=== PATIENT | female | born 1955 | race Caucasian/White ===

== ENCOUNTER → 2020-01-18 10:03 | Outpatient (CLI) | payer BC, SELFPAY ==
--- NOTE | ~2020-01-18 | MM_ITS ---
EXAMINATION: MM screening gabi BI w silvia HISTORY: Screening TECHNIQUE: Craniocaudal and mediolateral oblique 3-D tomosynthesis images were obtained and synthetic 2-D images were generated. CAD analysis was submitted and interpreted. COMPARISON: Comparison to multiple prior studies sequentially, with oldest reviewed study dated 10/04. BREAST PARENCHYMAL COMPOSITION: There are scattered areas of fibroglandular density. FINDINGS: There is a developing mass partially obscured by dense fibroglandular tissue in the upper o uter quadrant of the left breast. The right breast is stable without evidence for malignancy. IMPRESSION: 1. Developing 5 mm mass upper outer quadrant of the left breast. 2. Additional mammographic views and possible breast ultrasound are recommended. BI-RADS Category 0: Incomplete: Needs additional imaging evaluation. Reviewed, dictated and finalized at location A. P ACCOUNT DIRECTOR IMPRESSION: 1. Developing 5 mm mass upper outer quadrant of the left breast. 2. Additional mammographic views and possible breast ultrasound are recommended . BI-RADS Category 0: Incomplete: Needs additional imaging evaluation.
== END ==
PROVIDERS: PCP Physician Assistant; Visit Provider Nurse Practitioner
DX: Z12.31 Encounter for screening mammogram for malignant neoplasm of breast (principal); R92.8 Other abnormal and inconclusive findings on diagnostic imaging of breast
CPT/HCPCS: 77063; 77067

== ENCOUNTER → 2020-02-09 07:47 | Outpatient (CLI) | payer BC, SELFPAY ==
--- NOTE | ~2020-02-09 | MMUS_ITS ---
EXAMINATION: MM diagnostic mammo unilat LT, US breast LT limited HISTORY: Follow-up developing left breast mass TECHNIQUE: Additional 3-D tomosynthesis images of the left breast were performed and synthetic 2-D im ages were generated. CAD analysis was submitted and interpreted. High resolution Limited left breast ultrasound was performed. COMPARISON: Comparison to multiple prior studies sequentially, with oldest reviewed study dated 10/06. BREAST PARENCHYMAL COMPOSITION: Breast composed of scattered areas of fibroglandular density. FINDINGS: MAMMOGRAPHIC FINDINGS: There is a small 4 mm mass in the upper outer quadrant of the left breast anteriorly with central richelle ency and circumscribed margins, likely benign. No suspicious calcifications or architectural distorti on. ULTRASOUND: Limited left breast ultrasound: There are mildly prominent ducts in the lateral aspect of the left br east at 2-3:00. No discrete mass identified. IMPRESSION: 1. Probable benign left breast mass in the upper outer quadrant anteriorly measuring 4 mm. No definit e sonographic correlate. 2. Recommend 6 month follow-up diagnostic left mammogram BI-RADS category 3, probably benign findings. Reviewed, dictated and finalized at location A. R MACHINE OPERATOR HELPER IMPRESSION: 1. Probable benign left breast mass in the upper outer quadrant anteriorly margie uring 4 mm. No definite sonographic correlate. 2. Recommend 6 month follow-up diagnostic left mammogram BI-RADS category 3, probably benign findings.
== END ==
PROVIDERS: PCP Physician Assistant; Visit Provider Obstetrics & Gynecology Gynecology
DX: R92.8 Other abnormal and inconclusive findings on diagnostic imaging of breast (principal)
CPT/HCPCS: 76642; 77065

== ENCOUNTER → 2020-10-06 09:41 | Outpatient (CLI) | payer BC, SELFPAY ==
--- NOTE | ~2020-10-06 | DEXA_ITS ---
Bone Density Report Name: Raven Figueroa Age: 65 Sex: Female Ethnicity: White Date of : 1955 Indication: postmenopausal; screening for osteoporosis; Referring Provider: JOSE JUAN, COLBY Study: Bone densitometry was performed. Exam Date: October 06, 2020 Accession number: [id number] Bone Density: Region BMD T-score Z-score Classification AP Spine (L1-L4) 1.078 0.3 1.9 Normal Femoral Neck (Left) 0.911 0.6 2.0 Normal Total Hip (Left) 1.086 1.2 2.3 Normal Femoral Neck (Right) 0.863 0.1 1.6 Normal Total Hip (Right) 1.023 0.7 1.8 Normal Total Hip Mean 1.055 1.0 2.1 Normal World Health Organization criteria for BMD impression classify patients as: Normal (T-score at or above -1.0), Osteopenia (T-score between -1.0 and -2.5), or Osteoporosis (T-score at or below -2.5). 10-year Fracture Risk: FRAX not reported because: All T-scores for Spine Total, Hip Total, Femoral Neck at or above -1.0 Previous Exams: Region Exam Age BMD T-score BMD Change BMD Change Date g/cm2 vs Baseline vs Previous AP Spine(L1-L4) 10/06/2020 65 1.078 0.3 -0.064* -0.094* 09/09/2012 57 1.172 1.1 0.031* -0.006 08/14/2009 54 1.179 1.2 0.037* 0.037* 07/31/2007 52 1.142 0.9 Total Hip(Left) 10/06/2020 65 1.086 1.2 -0.051* -0.104* 09/09/2012 57 1.190 2.0 0.053* -0.007 08/14/2009 54 1.197 2.1 0.059* 0.059* 07/31/2007 52 1.137 1.6 Total Hip(Right) 10/06/2020 65 1.023 0.7 -0.031* -0.054* 09/09/2012 57 1.078 1.1 0.023 0.014 08/14/2009 54 1.064 1.0 0.009 0.009 07/31/2007 52 1.054 0.9 *Denotes significance at 95% confidence level, LSC for AP Spine = 0.022 g/cm2, LSC for Total Hip = 0.027 g/cm2 Clinical Information Provided by Patient: Patient maximum height was 65 Menopause Age: 49 Drinks caffeinated beverages Onset of menses at age 13 Number of children 1 Impression: The patient has normal bone mass. The BMD for the AP Spine(L1-L4) decreased, changing by -0.094 since the last DXA exam. The BMD for the Total Hip(Left) decreased, changing by -0.104 since the last DXA exam. The BMD for the Total Hip(Right) decreased, changing by -0.054 since the last DXA exam. Discussion: BONE DENSITY IS ABOVE THE MINIMUM DESIRABLE LEVEL AT ALL SKELETAL SITES
== END ==
PROVIDERS: PCP Physician Assistant; Visit Provider Nurse Practitioner
DX: Z78.0 Asymptomatic menopausal state (principal)
CPT/HCPCS: 77080

== ENCOUNTER → 2023-02-18 16:09 | Outpatient (CLI) | payer BC, SELFPAY ==
--- NOTE | ~2023-02-18 | XR_ITS ---
EXAMINATION: XR chest 2V Exam Date/Time: 02/18/2023 16:24 POWER NUT RUNNER OPERATOR HISTORY: COUGH Comparison: None. RESULT: Lines, tubes, and devices: None. Lungs and pleura: Minimal apical pleural scarring. Mild diffuse reticulonodular opacities. Cardiomediastinal silhouette: Unremarkable. Other: No acute osseous or upper abdominal finding. IMPRESSION: Pulmonary opacities may represent bronchiolitis, as can be seen with atypical infection, asthma, aspi ration, and small airways disease. Reviewed, dictated and finalized at location K. R NUT RUNNER OPERATOR IMPRESSION: Pulmonary opacities may represent bronchiolitis, as can be seen with atypical i nfection, asthma, aspiration, and small airways disease.
== END ==
PROVIDERS: PCP Physician Assistant; Visit Provider Physician Assistant
DX: R05.9 Cough, unspecified (principal); R91.8 Other nonspecific abnormal finding of lung field
CPT/HCPCS: 71046

== ENCOUNTER 2023-06-11 15:44 | Outpatient (CLI) | payer BC, SELFPAY ==
--- NOTE | ~2023-06-11 | CT_ITS ---
EXAMINATION: CT diagnostic chest wo con DATE: 06/11/2023 16:06 INDICATION: Chronic cough TECHNIQUE: Computed tomography (CT) of the chest was performed without intravenous contrast. Automate d exposure control and iterative reconstruction technique were employed. Exam dose: 285.88 mGy-cm to arianne exam DLP. COMPARISON: 02/18/2023 2 view chest FINDINGS: No pulmonary infiltrate or consolidation or pulmonary mass lesion. No hilar or mediastinal mass lesion or lymphadenopathy. No thoracic aortic aneurysm. Normal heart s ize. No pericardial or pleural effusion. There is soft tissue swelling of the distal esophagus, which may be due to esophagitis or neoplasm. There is a small sliding hiatal hernia. Normal morphology of the adrenal glands. IMPRESSION: No significant abnormality Reviewed, dictated and finalized at Location A. Reviewed, dictated and finalized at location A. IMPRESSION: No significant abnormality
== END 2023-06-11 15:45 ==
LOC: MICIMG 15:46
PROVIDERS: PCP Physician Assistant; Visit Provider Physician Assistant
DX: R05.3 Chronic cough (principal)
CPT/HCPCS: 71250

== ENCOUNTER 2023-08-07 00:36 | Day surgery (SDC) | payer BC, SELFPAY ==
[2023-07-21 14:57] VITALS: BMI 29.7
[2023-08-07 12:52] VITALS: BP 129/76; PULSE 72; RESP 16; TEMP 36.6; O2SAT 98; BMI 29.9
[2023-08-07] MEDS: LACTATED RINGERS 1,000 ML 150 ML IV CONT (13:04)
[2023-08-07 13:06] LABS: Glucose Point of Care 85 mg/dl (65-105)
--- NOTE | 2023-08-07 13:28 | WPDANESEPPF ---
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 Patient Data Age: 68 Gender: F Height: 1.65 m Weight: 81.5 kg Last Vital Signs Temp 97.8 F 08/07/23 12:52 Pulse 72 08/07/23 12:52 Resp 16 08/07/23 12:52 BP 129/76 08/07/23 12:52 Pulse Ox 98 08/07/23 12:52 O2 Del Method Room Air 08/07/23 12:52 Allergies Allergy/AdvReac Type Severity Reaction Status Date / Time hydromorphone AdvReac Mild NAUSEA/VOMI Verified 08/07/23 12:51 TING codeine AdvReac Nausea and Verified 08/07/23 12:51 Vomiting Home Medications Medication Instructions Recorded Confirmed Type bupropion HCl 300 mg 24 hr tablet, 300 mg PO DAILY 07/21/23 08/07/23 History extended release cyanocobalamin (vitamin B-12) See Rx Instructions .Route .COMPLEX 07/21/23 08/07/23 History 1,000 mcg/mL injection solution levothyroxine 88 mcg tablet 88 mcg PO DAILY 07/21/23 08/07/23 History linaclotide 145 mcg capsule 145 mcg PO DAILY 07/21/23 08/07/23 History (Linzess) lorazepam 1 mg tablet 1 mg PO HS 07/21/23 08/07/23 History metformin 500 mg tablet,extended 500 mg PO DAILY 07/21/23 08/07/23 History release 24 hr pantoprazole 40 mg tablet,delayed 40 mg PO BID 07/21/23 08/07/23 History release rosuvastatin 5 mg tablet 5 mg PO DAILY 07/21/23 08/07/23 History Laboratory Tests 08/07/23 13:03 POC Capillary Glucose 85 mg/dl (65-105) Patient hx anesthesia problems: none Family hx anesthesia problems: none Results Review: All pre-operative results and documents have been reviewed as part of the pre-operative evaluation. [facility] Family History Family History Other Diabetes mellitus Family history of malignant neoplasm of breast Social History Social History Smoking status: Never smoker Alcohol intake: never Substance use: never Substance use type: does not use Living arrangements: with family Spiritual care concerns: No Anes - Eval Final PreProcedure Day of Procedure 08/07/23 13:28 Patient weight: overweight Heart: regular rate and rhythm Lungs: clear to auscultation Airway: Mallampati scale class III Neurological: alert and oriented Last oral intake: >/= 8 hours ASA classification: II Emergent: no Anesthetic plan: proceed Anesthesia type and monitoring: general GIVS and standard monitoring Results Review: All pre-operative results and documents have been reviewed as part of the pre-operative evaluation. Hx of esosphageal ulceration, abn MRI per pt, now for EGD. Pt has hyperlipidemia, prev sleep study neg per pt. Informed Consent: The patient's anesthetic plan and its attendant risks and benefits were discussed with the patient/family/POA. Questions were solicited and answers provided to the satisfaction of the patient/family/POA.
--- NOTE | 2023-08-07 14:04 | PM.HPGS ---
History of Present Illness History of Present Illness Consent: Risks, benefits, and alternatives have been discussed and questions answered. Patient agrees to proceed with procedure. 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 Last EGD 3 years ago. Review of Systems Review of Systems: All systems reviewed & are unremarkable except as noted in HPI and below PMFSH Past Medical History Medical History (Updated 08/07/23 @ 14:06 by Pino Zhou MD) GERD (gastroesophageal reflux disease) Family History Family History Other Diabetes mellitus Family history of malignant neoplasm of breast Social History Social History Smoking status: Never smoker Alcohol intake: never Substance use: never Substance use type: does not use Living arrangements: with family Spiritual care concerns: No Meds Home Medications and Allergies Home Medications Medication Instructions Recorded Confirmed Type bupropion HCl 300 mg 24 hr tablet, 300 mg PO DAILY 07/21/23 08/07/23 History extended release cyanocobalamin (vitamin B-12) See Rx Instructions .Route .COMPLEX 07/21/23 08/07/23 History 1,000 mcg/mL injection solution levothyroxine 88 mcg tablet 88 mcg PO DAILY 07/21/23 08/07/23 History linaclotide 145 mcg capsule 145 mcg PO DAILY 07/21/23 08/07/23 History (Linzess) lorazepam 1 mg tablet 1 mg PO HS 07/21/23 08/07/23 History metformin 500 mg tablet,extended 500 mg PO DAILY 07/21/23 08/07/23 History release 24 hr pantoprazole 40 mg tablet,delayed 40 mg PO BID 07/21/23 08/07/23 History release rosuvastatin 5 mg tablet 5 mg PO DAILY 07/21/23 08/07/23 History Allergies Allergy/AdvReac Type Severity Reaction Status Date / Time hydromorphone AdvReac Mild NAUSEA/VOMI Verified 08/07/23 12:51 TING codeine AdvReac Nausea and Verified 08/07/23 12:51 Vomiting Vital Signs Vital Signs - 24 hr 08/07/23 12:52 Temperature 97.8 F Pulse Rate 72 Respiratory Rate 16 Blood Pressure 129/76 Pulse Oximetry 98 Oxygen Delivery Room Air Exam Const: General: comfortable and no acute distress HENMT: Face/Nose/Sinus: Normal nares present Eyes: General: appearance normal, both eyes and all related structures Neck: Neck: no JVD Resp: Auscultation: clear to auscultation bilaterally Cardio: Rate: regular rate Rhythm: regular rhythm GI: Inspection: non-distended GI Palp: Yes Soft to palpation Skin: General skin exam: normal color Neuro: General: gait normal Speech: normal speech Extrem: General: normal to inspection Psych: Mental Status: mental status grossly normal Assessment and Plan Assessment and plan (1) GERD (gastroesophageal reflux disease): Code(s): K21.9 - Gastro-esophageal reflux disease without esophagitis Status: Acute Assessment and Plan: egd with bx already on ppi bid
[2023-08-07 14:25] VITALS: BP 106/68; PULSE 77; RESP 20; O2SAT 95
[2023-08-07 14:35] VITALS: BP 119/76; PULSE 72; RESP 22; O2SAT 97
[2023-08-07 14:45] VITALS: BP 136/81; PULSE 65; RESP 18; O2SAT 100
== END 2023-08-07 14:55 | disposition home or self-care (01) ==
PROVIDERS: PCP Physician Assistant; Visit Provider Internal Medicine Gastroenterology
PROC: 0DJ08ZZ Inspection of Upper Intestinal Tract, Via Natural or Artificial Opening Endoscopic (ICD-10-PCS; CPT 43235; principal; 2023-08-07 14:00)
DX: K21.00 Gastro-esophageal reflux disease with esophagitis, without bleeding (principal); K22.70 Barrett's esophagus without dysplasia; K44.9 Diaphragmatic hernia without obstruction or gangrene; Z83.3 Family history of diabetes mellitus
CPT/HCPCS: 43239; 82948; 88305; J2001; J2704; J7120

== ENCOUNTER 2024-06-23 12:32 | Outpatient (CLI) | payer BC, SELFPAY ==
--- NOTE | 2024-06-23 | ECHO_ITS ---
Patient Info Name: Raven Figueroa Age: 68 years : 1955 Gender: Female Ht: 65 in Wt: 177 lbs BSA: 1.94 m2 HR: 82 bpm BP: 129 / 94 mmHg Heart Rhythm: Sinus Rhythm Technical Quality: Good Exam Date: 06/23/2024 12:53 PM Patient Status: unknown Admit Date: 06/23/2024 Exam Type: CA echo doppler color flow Five Piece Expansion Maker Hand: Shanell Pierre Attending Provider: Cris Malin Summary 1. There is normal biventricular size and systolic function. 2. There are no significant valvular abnormalities. Left Ventricle Left ventricle is normal in size and systolic function. There is concentric left ventricular remodeling. The left ventricular ejection fraction is visually estimated to be 60-65%. There is no regional wall motion abnormalities in this study. Right Ventricle The right ventricle is normal in size and systolic function. Left Atria The left atrium is normal size. Right Atria The right atrium is normal size. Atrial Septum The atrial septum is intact by color Doppler. Aortic Valve The aortic valve is trileaflet and opens well. There is no aortic regurgitation. Pulmonic Valve The pulmonic valve is grossly normal. Mitral Valve The mitral valve is normal. Tricuspid Valve The tricuspid valve is normal. Pericardium/Pleural Pericardium is normal in appearance with no evidence for significant pericardial effusion. Inferior Vena Cava The IVC is not well visualized. Aorta The aortic root at the level of the sinus of Valsalva measures 2.9 cm in diameter. Left Ventricular Outflow Tract Name Value Normal LVOT 2D LVOT Diameter 2.0 cm LVOT Doppler LVOT Peak Velocity 91 cm/s LVOT Peak Gradient 3 mmHg LVOT Mean Gradient 2 mmHg LVOT VTI 19 cm LVOT VTI/AV VTI Ratio 0.6 LVOT Stroke Volume 58 ml LVOT CO 4.4 l/min LVOT CI 2.3 l/min/m2 Pulmonic Valve Name Value Normal RVOT Doppler RVOT Peak Velocity 75 cm/s RVOT Peak Gradient 2 mmHg PV Doppler PV Peak Velocity 98 cm/s PV Peak Gradient 4 mmHg Mitral Valve Name Value Normal MV Diastolic Function MV E Peak Velocity 80 cm/s MV A Peak Velocity 121 cm/s MV E/A 0.7 MV Decel Time (PW) 253 ms MV Annular TDI MV E/e' (Septal) 10.4 Tricuspid Valve Name Value Normal TV Regurgitation Doppler TR Peak Velocity 191 cm/s TR Peak Gradient 13 mmHg Estimated PAP/RSVP RA Pressure 10 mmHg <=5 PA Systolic Pressure 25 mmHg <36 RV Systolic Pressure 25 mmHg <36 TV Annular TDI TV Lateral Cher s' Velocity 14.3 cm/s >=9.5 Aorta Name Value Normal Ascending Aorta Ao Root Diameter (MM) 2.7 cm Ao Root Diam Index (MM) 1.4 cm/m2 Aortic Valve Name Value Normal AV Doppler AV Peak Velocity 160 cm/s AV Peak Gradient 10 mmHg AV Mean Gradient 5 mmHg AV VTI 30 cm AV Area (Cont Eq VTI) 1.9 cm2 >=3.0 AV Area (Cont Eq Pilo) 1.7 cm2 AV DI (Pilo) 0.57 AV Regurgitation 2D LVOT Area 3.1 cm2 Ventricles Name Value Normal LV Dimensions 2D/MM IVS Diastolic Thickness (2D) 1.0 cm 0.6-1.0 LVID Diastole (2D) 3.7 cm 3.8-5.2 LVIW Diastolic Thickness (2D) 1.0 cm 0.6-0.9 LVID Systole (2D) 2.1 cm 2.2-3.5 LVOT Diameter 2.0 cm LV Mass (2D Cubed) 112.21 g 67.00-162.00 LV Mass Index (2D Cubed) 58 g/m2 43-95 Relative Wall Thickness (2D) 0.53 <=0.42 LV Fractional Shortening/Ejection Fraction 2D/MM LV Fractional Shortening (2D) 44 % 27-45 LV EF (2D Teichholz) 76 % LV Diastolic Volume (4C MOD) 55 ml LV EF (4C MOD) 63 % LV Diastolic Volume (2C MOD) 55 ml LV EF (2C MOD) 69 % LV Diastolic Volume (BP MOD) 55 ml 46-106 LV Diastolic Volume Index (BP MOD) 28 ml/m2 29-61 LV Systolic Volume (BP MOD) 19 ml 14-42 LV Systolic Volume Index (BP MOD) 10 ml/m2 8-24 LV EF (BP MOD) 66 % 54-74 LV Diastolic Length (4C) 7.1 cm LV Systolic Length (4C) 5.7 cm LV Stroke Volume (4C MOD) 34 ml Atria Name Value Normal LA Dimensions LA Dimension (MM) 4.4 cm 2.7-3.8 LA Volume (4C A-L) 58 ml LA Volume (BP A-L) 55 ml RA Dimensions RA Area (4C) 12.6 cm2 <=18.0 Report Signatures
--- OUTSIDE RECORDS SUMMARY | 2024-06-23 12:35 | XMS_ITS | Data Portability ---
Author Organization [facility], Main Office Address [address] [place] [address] Assessment No assessment recorded. Plan of Treatment Reminders Order Date Submit Date Provider Last Modified By Organization Details Last Modified Time Details Appointments None recorded. Lab HbA1c (hemoglobin A1c), blood 2022 023 [facility], [address], [place], [address], 14:58:17 CBC w/ auto diff 2022 023 [facility], [address], [place], [address], 14:58:24 BMP, serum or plasma 2022 023 [facility], [address], [place], [address], 14:58:16 hepatic function panel, serum 2022 023 [facility], [address], [place], [address], 3 14:58:19 culture, urine 2022 023 [facility], [address], [place], [address], 3 14:58:27 urinalysis, complete 2022 023 [facility], [address], [place], [address], 3 14:58:25 lipid panel, serum 2022 023 [facility], [address], [place], [address], 3 14:58:14 vitamin D, 25-hydroxy, total, serum 2022 023 [facility], [address], [place], [address], 14:58:18 TSH, serum or plasma 2022 023 [facility], [address], [place], [address], 14:58:20 T4, free, serum 2022 023 [facility], [address], [place], [address], 14:58:22 thyroid peroxidase (tpo) Ab, serum 2022 023 [facility], [address], [place], [address], 3 14:58:23 vitamin B12 + folate, serum or blood 2022 023 [facility], [address], [place], [address], 3 09:50:48 vitamin D, 25-hydroxy, total, serum 2022 023 [facility], [address], [place], [address], 3 09:55:42 HbA1c (hemoglobin A1c), blood 2022 023 [facility], [address], [place], [address], 3 09:50:47 insulin, serum 2022 023 [facility], [address], [place], [address], 3 09:50:46 CMP, serum or plasma 2022 023 [facility], [address], [place], [address], 3 09:50:45 lipid panel, serum 2022 023 [facility], [address], [place], [address], 3 09:50:45 T3, free, serum or plasma 2022 023 [facility], [address], [place], [address], 3 09:50:46 TSH, serum or plasma 2022 023 [facility], [address], [place], [address], 3 09:50:44 T4, free, serum 2022 023 [facility], [address], [place], [address], 3 09:50:48 Referral None recorded. Procedures None recorded. Surgeries None recorded. Imaging None recorded. Medication Orders Tirosint 88 mcg capsule 2022 023 [id number], [address], [place], [place], [id number], 3 09:54:19 Patient TargetsNo targets recorded. Patient InstructionsNo instructions recorded. Reason for Referral None Reported. Results Created Date Observation Date Name Description Value Unit Range Abnormal Flag Note LastModifiedBy Organization Detail LastModifiedTime 09/07/19 22 09/07/2021 HEMOG LOBIN A1C hemoglobin A1C 5.5 %_of_ total _HGB <5.7 normal For the purpo se of screyassine westg for the prese nce of diabe abimael: <5.7% Consi stent with the absen ce of diabe abimael 5.7-6 .4% Consi stent with incre ased risk for diabe abimael (pred iabet es) > or =6.5% Consi stent with diabe abimael This assay resul t is consi stent with a decre ased risk of diabe abimael. Curre ntly, no conse nsus exist s theodore turner use of hemog lobin A1c for diagn osis of diabe abimael in child juana. Accor ding to Ameri can Diabe abimael Assoc iatio n (ADA) guide lines , hemog lobin A1c <7.0% repre sents optim al contr ol in non-p regna nt diabe tic patie nts. Diffe rent metri cs may apply to speci fic patie nt popul ation s. [facility] al [facility] in Diabe abimael(A DA). Not Available [facility] [address] [place], [address], 09/08/2021 02:22:49 09/07/19 22 09/07/2021 TSH+F REE T4 TSH 0.91 mIU/L 0.40-4 .50 normal Not Available [facility] [address] [place], [address], 09/08/2021 02:22:49 09/07/19 22 09/07/2021 TSH+F REE T4 T4, free 1.3 NG/dL 0.8-1. 8 normal Not Available [facility] [address] [address] [place], [address], 09/08/2021 02:22:49 09/07/19 22 09/07/2021 T3, FREE T3, free 2.9 pg/mL 2.3-4. 2 normal Not Available [facility] [address], [address], 09/08/2021 02:22:48 09/07/19 22 09/07/2021 VITAM IN B12/F OLATE , SERUM PANEL vitamin B12 1314 pg/mL 200-11 00 high Not Available [facility] [address], [address], 09/08/2021 02:22:48 09/07/19 22 09/07/2021 VITAM IN B12/F OLATE , SERUM PANEL folate, serum 8.8 NG/mL normal Refer ence Range Low: <3.4 Borde rline : 3.4-5 .4 Yael l: >5.4 Not Available [facility] [address], [address], 09/08/2021 02:22:48 09/07/19 22 09/07/2021 INSUL IN insulin 8.1 uIU/m L normal Refer ence Range < or = 19.6 Risk: Optim al < or = 19.6 Moder ate NA High >19.6 Adult cardi ovasc ular event risk categ ory cut point s (opti mal, moder ate, high) are based on [facility] popul ation data from 01/29 11. This insul in assay shows stron g cross -reac tivit y for some insul in analo gs (lisp ro, aspar t, and glarg ine) and much lower cross -reac tivit y with other s (dete danie, gluli sine) . Not Available [facility] [address] [address] [place], [address], 09/08/2021 02:22:47 09/07/19 22 09/07/2021 THYRO ID PEROX IDASE ANTIB ODIES thyroid peroxidase antibodies 10 IU/mL <9 high Not Available [address], [address], 09/08/2021 02:22:47 09/07/19 22 09/07/2021 COMPR EHENS BISHOP METAB OLIC PANEL glucose 108 mg/dL 65-99 high Fasti ng refer ence inter ujnior For someo ne witho ut known diabe abimael, a gluco se value betwe en 100 and 125 mg/dL is consi stent with predi abete s and shoul d be confi rmed with a follo w-up test. Not Available [address], [address], 09/08/2021 02:22:46 09/07/19 22 09/07/2021 COMPR EHENS BISHOP METAB OLIC PANEL urea nitrogen (BUN) 19 mg/dL 7-25 normal Not Available [address], [address], 09/08/2021 02:22:46 09/07/19 22 09/07/2021 COMPR EHENS BISHOP METAB OLIC PANEL sodium 141 mmol/ L 135-14 6 normal Not Available [address], [address], 09/08/2021 02:22:46 09/07/19 22 09/07/2021 COMPR EHENS BISHOP METAB OLIC PANEL creatinine 1.06 mg/dL 0.50-1 .05 high Not Available [address], [address], 09/08/2021 02:22:46 09/07/19 22 09/07/2021 COMPR EHENS BISHOP METAB OLIC PANEL eGFR 59 mL/mi n/1.7 3m2 > or = 60 low The eGFR is based on the CKD-E PI 2020 equat ion. To calcu late the new eGFR from a previ ous Creat inine or Cysta tin C resul t, go to https ://teresa baig.[email or web address] gomez.o migel/pr ofess ional s/ kdoqi /gfr% 5Fcal culat or Not Available [address], [address], 09/08/2021 02:22:46 09/07/19 22 09/07/2021 COMPR EHENS BISHOP METAB OLIC PANEL BUN/creatini ne ratio 18 (calc ) 6-22 normal Not Available [address], [address], 09/08/2021 02:22:46 09/07/19 22 09/07/2021 COMPR EHENS BISHOP METAB OLIC PANEL potassium 4.1 mmol/ L 3.5-5. 3 normal Not Available [address], [address], 09/08/2021 02:22:46 09/07/19 22 09/07/2021 COMPR EHENS BISHOP METAB OLIC PANEL chloride 103 mmol/ L 98-110 normal Not Available [address], [address], 09/08/2021 02:22:46 09/07/19 22 09/07/2021 COMPR EHENS BISHOP METAB OLIC PANEL carbon dioxide 31 mmol/ L 20-32 normal Not Available [address], [address], 09/08/2021 02:22:46 09/07/19 22 09/07/2021 COMPR EHENS BISHOP METAB OLIC PANEL calcium 9.2 mg/dL 8.6-10 .4 normal Not Available [address], [address], 09/08/2021 02:22:46 09/07/19 22 09/07/2021 COMPR EHENS BISHOP METAB OLIC PANEL protein, total 6.5 g/dL 6.1-8. 1 normal Not Available [address] [address] [place], [address], 09/08/2021 02:22:46 09/07/19 22 09/07/2021 COMPR EHENS BISHOP METAB OLIC PANEL albumin 4.1 g/dL 3.6-5. 1 normal Not Available [address], [address], 09/08/2021 02:22:46 09/07/19 22 09/07/2021 COMPR EHENS BISHOP METAB OLIC PANEL globulin 2.4 g/dL_ (calc ) 1.9-3. 7 normal Not Available [address], [address], 09/08/2021 02:22:46 09/07/19 22 09/07/2021 COMPR EHENS BISHOP METAB OLIC PANEL albumin/glob ulin ratio 1.7 (calc ) 1.0-2. 5 normal Not Available [address] [address] [place], [address], 09/08/2021 02:22:46 09/07/19 22 09/07/2021 COMPR EHENS BISHOP METAB OLIC PANEL bilirubin, total 0.8 mg/dL 0.2-1. 2 normal Not Available [address], [address], 09/08/2021 02:22:46 09/07/19 22 09/07/2021 COMPR EHENS BISHOP METAB OLIC PANEL alkaline phosphatase 51 U/L 37-153 normal Not Available [facility] [address] [address] [place], [address], 09/08/2021 02:22:46 09/07/19 22 09/07/2021 COMPR EHENS BISHOP METAB OLIC PANEL AST 15 U/L 10-35 normal Not Available [address] [address] [place], [address], 09/08/2021 02:22:46 09/07/19 22 09/07/2021 COMPR EHENS BISHOP METAB OLIC PANEL ALT 13 U/L 6 normal Not Available [address], [address], 09/08/2021 02:22:46 09/07/19 22 09/07/2021 LIPID PANEL , STAND SOCRATES chol/HDLC ratio 2.6 (calc ) <5.0 normal Not Available [address], [address], 09/08/2021 02:22:46 09/07/1909/07/2021 LIPID PANEL , STAND SOCRATES cholesterol, total 195 mg/dL <200 normal Not Available [address], [address], 09/08/2021 02:22:46 09/07/19 22 09/07/2021 LIPID PANEL , STAND SOCRATES HDL cholesterol 75 mg/dL > or = 50 normal Not Available [address], [address], 09/08/2021 02:22:46 09/07/19 22 09/07/2021 LIPID PANEL , STAND SOCRATES triglyceride s 102 mg/dL <150 normal Not Available [address], [address], 09/08/2021 02:22:46 09/07/19 22 09/07/2021 LIPID PANEL , STAND SOCRATES LDL-choleste rol 100 mg/dL _(britney c) high Refer ence range : <100 Juancho able range <100 mg/dL for prima ry preve ntion ; <70 mg/dL for patie nts with CHD or diabe tic patie nts with > or = 2 CHD risk facto rs. LDL-C is now calcu lated using the Gabi n-Hop kins calcu july n, which is a valid ated novel metho d provi ding jessica r accur acy than the Fried rick equat ion in the estim ation of LDL-C . Gabi n SS et al. NESS. 2013; 310(1 9): 2061- 2068 (http ://ed ucati on.Raven cherry Spreecast. com/f aq/FA Q164) Not Available [facility] [address], [place], [address], 09/08/2021 02:22:46 09/07/1909/07/2021 LIPID PANEL , STAND SOCRATES non HDL cholesterol 120 mg/dL _(britney c) <130 normal For patie nts with diabe abimael plus 1 major ASCVD risk facto r, treat ing to a non-H DL-C goal of <100 mg/dL (LDL- C of <70 mg/dL ) is consi dered a thera peuti c optio n. Not Available [facility] [address], [place], [address], 09/08/2021 02:22:46 03/01/1903/02/2022 HEMOG LOBIN A1C hemoglobin A1C 5.7 %_of_ total _HGB <5.7 high For someo ne witho ut known diabe abimael, a hemog lobin A1c value betwe en 5.7% and 6.4% is consi stent with predi abete s and shoul d be confi rmed with a follo w-up test. For someo ne with known diabe abimael, a value <7% indic ates that their diabe abimael is well contr olled . A1c targe ts shoul d be indiv idual ized based on durat ion of diabe abimael, age, comor bid condi tions , and other consi derat ions. This assay resul t is consi stent with an incre ased risk of diabe abimael. Curre ntly, no conse nsus exist s regar ding use of hemog lobin A1c for diagn osis of diabe abimael for child juana. Not Available [facility] [address], [place], [address], 03/02/2022 12:54:20 03/01/19 23 03/02/2022 TSH+F REE T4 TSH 0.74 mIU/L 0.40-4 .50 normal Not Available [address], [address], 03/02/2022 12:54:20 03/01/19 23 03/02/2022 TSH+F REE T4 T4, free 1.2 NG/dL 0.8-1. 8 normal Not Available [address], [address], 03/02/2022 12:54:20 03/01/19 23 03/02/2022 VITAM IN D,25- OH,TO ALONA,I A vitamin D,25-oh,tota l,ia 23 NG/mL 30-100 low Vitam in D Statu s 25-OH Vitam in D: Defic iency : <20 ng/mL Insuf ficie ncy: 20 - 29 ng/mL Optim al: > or = 30 ng/mL For 25-OH Vitam in D testi ng on patie nts on D2-bustamante pplem entat ion and patie nts for whom quant itati on of D2 and D3 fract ions is requi red, the [facility] eD(TM ) 25-OH VIT D, (D2,D 3), LC/MS /MS is recom clarissa d: order code 46514 (erin ents >2yrs ). See Note 1 Note 1 For addit ional infor damaso araujo refer to http: //lorie Olea gnost ics.c om/fa q/FAQ 199 (This link is being provi ded for infor dayan fierro/ nidia shaikh purpo ses only. ) Not Available [address], [address], 03/02/2022 12:54:19 03/01/19 23 03/02/2022 T3, FREE T3, free 3.3 pg/mL 2.3-4. 2 normal Not Available [address], [address], 03/02/2022 12:54:19 03/01/19 23 03/02/2022 VITAM IN B12/F OLATE , SERUM PANEL vitamin B12 768 pg/mL 200-11 00 normal Not Available [address], [address], 03/02/2022 12:54:18 03/01/19 23 03/02/2022 VITAM IN B12/F OLATE , SERUM PANEL folate, serum 13.1 NG/mL normal Refer ence Range Low: <3.4 Borde rline : 3.4-5 .4 Yael l: >5.4 Not Available [address], [address], 03/02/2022 12:54:18 03/01/19 23 03/02/2022 INSUL IN insulin 11.0 uIU/m L normal Refer ence Range < or = 18.4 Risk: Optim al < or = 18.4 Moder ate NA High >18.4 Adult cardi ovasc ular event risk categ ory cut point s (opti mal, moder ate, high) are based on Insul in Refer ence Inter junior studi es perfo rmed at [facility] in 2021. Not Available [address], [address], 03/02/2022 12:54:18 03/01/19 23 03/02/2022 COMPR EHENS BISHOP METAB OLIC PANEL glucose 95 mg/dL 65-99 normal Fasti ng refer ence inter junior Not Available [facility] [address], [address], 03/02/2022 12:54:17 03/01/19 23 03/02/2022 COMPR EHENS BISHOP METAB OLIC PANEL urea nitrogen (BUN) 19 mg/dL 7-25 normal Not Available [facility] [address], [address], 03/02/2022 12:54:17 03/01/19 23 03/02/2022 COMPR EHENS BISHOP METAB OLIC PANEL creatinine 1.08 mg/dL 0.50-1 .05 high Not Available [address], [address], 03/02/2022 12:54:17 03/01/19 23 03/02/2022 COMPR EHENS BISHOP METAB OLIC PANEL eGFR 57 mL/mi n/1.7 3m2 > or = 60 low The eGFR is based on the CKD-E PI 2020 equat ion. To calcu late the new eGFR from a previ ous Creat inine or Cysta tin C resul t, go to https ://teresa gomez.delilah lainez/neal winston s/ kdoqi /gfr% 5Fcal culat or Not Available [address], [address], 03/02/2022 12:54:17 03/01/19 23 03/02/2022 COMPR EHENS BISHOP METAB OLIC PANEL BUN/creatini ne ratio 18 (calc ) 6-22 normal Not Available [address], [address], 03/02/2022 12:54:17 03/01/19 23 03/02/2022 COMPR EHENS BISHOP METAB OLIC PANEL sodium 140 mmol/ L 135-14 6 normal Not Available [address], [address], 03/02/2022 12:54:17 03/01/19 23 03/02/2022 COMPR EHENS BISHOP METAB OLIC PANEL potassium 5.1 mmol/ L 3.5-5. 3 normal Not Available [address], [address], 03/02/2022 12:54:17 03/01/19 23 03/02/2022 COMPR EHENS BISHOP METAB OLIC PANEL chloride 104 mmol/ L 98-110 normal Not Available [address], [address], 03/02/2022 12:54:17 03/01/19 23 03/02/2022 COMPR EHENS BISHOP METAB OLIC PANEL carbon dioxide 31 mmol/ L 20-32 normal Not Available [address], [address], 03/02/2022 12:54:17 03/01/19 23 03/02/2022 COMPR EHENS BISHOP METAB OLIC PANEL calcium 9.3 mg/dL 8.6-10 .4 normal Not Available [address], [address], 03/02/2022 12:54:17 03/01/19 23 03/02/2022 COMPR EHENS BISHOP METAB OLIC PANEL protein, total 7.0 g/dL 6.1-8. 1 normal Not Available [address], [address], 03/02/2022 12:54:17 03/01/19 23 03/02/2022 COMPR EHENS BISHOP METAB OLIC PANEL albumin 4.0 g/dL 3.6-5. 1 normal Not Available [address], [address], 03/02/2022 12:54:17 03/01/19 23 03/02/2022 COMPR EHENS BISHOP METAB OLIC PANEL globulin 3.0 g/dL_ (calc ) 1.9-3. 7 normal Not Available [address], [address], 03/02/2022 12:54:17 03/01/19 23 03/02/2022 COMPR EHENS BISHOP METAB OLIC PANEL albumin/glob ulin ratio 1.3 (calc ) 1.0-2. 5 normal Not Available [address], [address], 03/02/2022 12:54:17 03/01/19 23 03/02/2022 COMPR EHENS BISHOP METAB OLIC PANEL bilirubin, total 0.8 mg/dL 0.2-1. 2 normal Not Available [address], [address], 03/02/2022 12:54:17 03/01/19 23 03/02/2022 COMPR EHENS BISHOP METAB OLIC PANEL alkaline phosphatase 54 U/L 37-153 normal Not Available [address] [address] [place], [address], 03/02/2022 12:54:17 03/01/19 23 03/02/2022 COMPR EHENS BISHOP METAB OLIC PANEL AST 15 U/L 10-35 normal Not Available [address], [address], 03/02/2022 12:54:17 03/01/19 23 03/02/2022 COMPR EHENS BISHOP METAB OLIC PANEL ALT 14 U/L 6-29 normal Not Available [address], [address], 03/02/2022 12:54:17 03/01/19 23 03/02/2022 LIPID PANEL , STAND SOCRATES chol/HDLC ratio 2.4 (calc ) <5.0 normal Not Available [address], [address], 03/02/2022 12:54:17 03/01/19 23 03/02/2022 LIPID PANEL , STAND [employer]CRATES cholesterol, total 183 mg/dL <200 normal Not Available [address], [address], 03/02/2022 12:54:17 03/01/19 23 03/02/2022 LIPID PANEL , STAND SOCRATES HDL cholesterol 75 mg/dL > or = 50 normal Not Available [address] [place], [address], 03/02/2022 12:54:17 03/01/19 23 03/02/2022 LIPID PANEL , STAND SOCRATES triglyceride s 74 mg/dL <150 normal Not Available [facility] [address] [address] [place], [address], 03/02/2022 12:54:17 03/01/19 23 03/02/2022 LIPID PANEL , STAND [employer]CRATES LDL-choleste rol 92 mg/dL _(britney c) normal Refer ence range : <100 Juancho able range <100 mg/dL for prima ry preve ntion ; <70 mg/dL for patie nts with CHD or diabe tic patie nts with > or = 2 CHD risk facto rs. LDL-C is now calcu lated using the Gabi n-Hop kins calcu july n, which is a valid ated novel shoo d moniquei johnny diorte r accur acy than the Fried rick equat ion in the estim ation of LDL-C . Gabi velazquez SS et al. NESS. 2013; 310(1 9): 2061- 2068 (http ://ed ucati on.Qu Monica Truzip. com/f aq/FA Q164) Not Available [facility] [address] [address], [place], [address], 03/02/2022 12:54:17 03/01/19 23 03/02/2022 LIPID PANEL , STAND SOCRATES non HDL cholesterol 108 mg/dL _(britney c) <130 normal For patie nts with diabe abimael plus 1 major ASCVD risk facto r, treat ing to a non-H DL-C goal of <100 mg/dL (LDL- C of <70 mg/dL ) is consi kennad a hemant lowo n. Not Available [facility] [address] [address] [address], [place], [address], 03/02/2022 12:54:17 11/19/19 23 11/22/2022 LIPID PANEL WITH RATIO S cholesterol, total 197 mg/dL <200 normal Not Available [facility] [address] [place], [address], 11/22/2022 14:58:14 11/19/1911/22/2022 LIPID PANEL WITH RATIO S HDL cholesterol 69 mg/dL > or = 50 normal Not Available [facility] [address] [place], [address], 11/22/2022 14:58:14 11/19/1911/22/2022 LIPID PANEL WITH RATIO S triglyceride s 106 mg/dL <150 normal Not Available [facility] [address] [address] [place], [address], 11/22/2022 14:58:14 11/19/1911/22/2022 LIPID PANEL WITH RATIO S LDL-choleste rol 108 mg/dL _(britney c) high Refer ence range : <100 Juancho able range <100 mg/dL for prima ry preve ntion ; <70 mg/dL for patie nts with CHD or diabe tic patie nts with > or = 2 CHD risk facto rs. LDL-C is now calcu lated using the Gabi velazquez-Hop luis mcdowell n, which is a valid ated novel en bell accur acy than the Fried rick equat ion in the estim ation of LDL-C . Gabi velazquez SS et al. NESS. 2013; 310(1 9): 2061- 2068 (http ://ed ucati on.Qu Monica cherry tics. com/f aq/FA Q164) Not Available [facility] [address], [place], [address], 11/22/2022 14:58:14 11/19/1911/22/2022 LIPID PANEL WITH RATIO S chol/HDLC ratio 2.9 (calc ) <5.0 normal Not Available [facility] [address] [place], [address], 11/22/2022 14:58:14 11/19/1911/22/2022 LIPID PANEL WITH RATIO S LDL/HDL ratio 1.6 (calc ) Below avera ge Risk: <2.34 Delta ge Risk: 2.35- 4.12 Moder ate Risk: 4.13- 5.56 High Risk: >5.57 Not Available [address] [address] [place], [address], 11/22/2022 14:58:14 11/19/1911/22/2022 LIPID PANEL WITH RATIO S non HDL cholesterol 128 mg/dL _(britney c) <130 normal For patie nts with diabe abimael plus 1 major ASCVD risk facto r, treat ing to a non-H DL-C goal of <100 mg/dL (LDL- C of <70 mg/dL ) is bren marcos peuti c optio n. Not Available [address], [address], 11/22/2022 14:58:14 11/19/1911/22/2022 BASIC METAB OLIC PANEL glucose 97 mg/dL 65-99 normal Fasti ng refer ence inter junior Not Available [address] [address] [place], [address], 11/22/2022 14:58:15 11/19/1911/22/2022 BASIC METAB OLIC PANEL urea nitrogen (BUN) 15 mg/dL 7-25 normal Not Available [address], [address], 11/22/2022 14:58:15 11/19/1911/22/2022 BASIC METAB OLIC PANEL creatinine 0.99 mg/dL 0.50-1 .05 normal Not Available [address], [address], 11/22/2022 14:58:15 11/19/1911/22/2022 BASIC METAB OLIC PANEL eGFR 63 mL/mi n/1.7 3m2 > or = 60 normal Not Available [address], [address], 11/22/2022 14:58:15 11/19/1911/22/2022 BASIC METAB OLIC PANEL BUN/creatini ne ratio SEE NOTE: (calc ) 6-22 Not Repor jose alberto: BUN and Creat inine are withi n refer ence range . Not Available [address], [address], 11/22/2022 14:58:15 11/19/1911/22/2022 BASIC METAB OLIC PANEL sodium 137 mmol/ L 135-14 6 normal Not Available [address], [address], 11/22/2022 14:58:15 11/19/1911/22/2022 BASIC METAB OLIC PANEL potassium 3.9 mmol/ L 3.5-5. 3 normal Not Available [address] [address] [place], [address], 11/22/2022 14:58:15 11/19/1911/22/2022 BASIC METAB OLIC PANEL chloride 100 mmol/ L 98-110 normal Not Available [address] [address] [place], [address], 11/22/2022 14:58:15 11/19/1911/22/2022 BASIC METAB OLIC PANEL carbon dioxide 30 mmol/ L 20-32 normal Not Available [address], [address], 11/22/2022 14:58:15 11/19/1911/22/2022 BASIC METAB OLIC PANEL calcium 9.2 mg/dL 8.6-10 .4 normal Not Available [address], [address], 11/22/2022 14:58:15 11/19/1911/22/2022 HEMOG LOBIN A1C hemoglobin A1C 5.6 %_of_ total _HGB <5.7 normal For the purpo se of eitan zuñiga for the prese nce of diabe abimael: <5.7% Consi stent with the absen ce of diabe abimael 5.7-6 .4% Consi stent with incre ased risk for diabe abimael (pred iabet es) > or =6.5% Consi stent with diabe abimael This assay resul t is consi stent with a decre ased risk of diabe abimael. Curre ntly, no conse nsus exist s regfederico turner use of hemog lobin A1c for diagn osis of diabe abimael in child juana. Accor ding to [employer]i can Diabe abimael [employer] i[employer] n (ADA) guide lines , hemog lobin A1c <7.0% repre sents optim al contr ol in non-p regna nt diabe tic patie nts. Diffe rent metri cs may apply to speci fic patie nt popul ation s. [facility] in Diabe abimael(A DA). Not Available [facility] [address] [place], [address], 11/22/2022 14:58:17 11/19/19 23 11/22/2022 VITAM IN D,25- OH,TO ALONA,I A vitamin D,25-oh,tota l,ia 35 NG/mL 30-100 normal Vitam in D Statu s 25-OH Vitam in D: Defic ie [id number]|2024-06-23 12:35:00|2024-06-23 12:35:00|XMS_ITS|BKG DAEMON|External Medical Summaries|[id number]|" Clinical Summary Created on: June 23, 2024 Raven Figueroa : 1955 Sex: Female Author Organization [facility] Address [address] [place] [address] Care Team Providers Care E Mail System Administrator Name Role Phone Unavailable Primary Care Provider Unavailabl e Social History Tobacco Use Types Packs/Day Years Used Date Smoking Tobacco: Never Assessed Comments Unknown Sex and Gender Information Value Date Recorded Sex Assigned at Not on file Legal Sex Female 2:16 PM CDT Gender Identity Not on file Sexual Orientation Not on file Plan of Treatment Health Maintenance Due Date Last Done Comments DTAP/TDAP/TD VACCINES (1 - Tdap) 1976 BREAST CANCER SCREENING 1997 COLORECTAL SCREENING 2002 Colorectal Cancer Screening 2002 FIT-DNA Q 3 years 2002 FIT/FOBT Q 1 year 2002 Flex Sig/CT Colonography Q 5 years 2002 PNEUMOCOCCAL VACCINE 50+ YEARS (1 of 1 - PCV) 07/01/19 08 ZOSTER VACCINE (1 of 2) 07/01/2007 OSTEOPOROSIS SCREENING 2022 INFLUENZA VACCINE (#1) 2023 RSV VACCINE (60+ or ) (1 - 1-dose 75+ series) 2032 Insurance BCBS BLUE ACCESS/TRUE BLUE PPO "
--- OUTSIDE RECORDS SUMMARY | 2024-06-23 12:35 | XMS_ITS | CONTINUITY OF CARE DOCUMENT ---
Author Name lisette knox Address Unknown Organization [facility] [address] [address] Address [address] [facility] [address] [place] [address] Phone [phone] Care Team Providers Care Legal Paraprofessional Name Role Phone Pelon Alba MD Unavailable [phone] Pelon Alba MD Unavailable [phone] INSURANCE PROVIDERS Payer name Policy type / Coverage type [employer] libertarian ID [facility] [id number]
--- OUTSIDE RECORDS SUMMARY | 2024-06-23 12:35 | XMS_ITS | Clinical Summary ---
Author Organization [facility] Address [address] [place] [address] Care Team Providers Care Biology Intern Name Role Phone Lucy Dempsey MD Unavailable Cris King Primary Care Pr ovider Allergies Active Allergy Reactions Criticality Noted Date Comments Hydrocodone-Acetaminophen Nausea & Vomiting Low 06/2020 Hydromorphone Nausea & Vomiting Low 07/08/2023 Oxycodone Nausea & Vomiting,Unknown Low 06/14/2020 Oxycodone-Acetaminophen Vomiting Low 07/08/2023 Semaglutide Vomiting Medium 11/05/2023 Medications buPROPion XL (WELLBUTRIN XL) 300 mg 24 hr tablet Take 1 tablet (300 mg total) by mouth every morning 1 Active Linzess 145 mcg capsule Take 1 capsule (145 mcg total) by mouth every morning 1 Active LORazepam (ATIVAN) 1 mg tablet TAKE 1/2 TO 1 TABLET BY MOUTH AT BEDTIME FOR SLEEP [address] (PROTONIX) 40 mg EC tablet Take 1 tablet (40 mg total) by mouth 2 (two) times a day 1 Active rosuvastatin (CRESTOR) 5 mg tabletIndication s:hyperlipidemia Take 1 tablet (5 mg total) by mouth every evening 1 Active fexofenadine (Amy Allergy) 180 mg tablet Take 1 tablet (180 mg total) by mouth as needed Active levothyroxine (SYNTHROID) 88 mcg tabletIndication s: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 Take 1 tablet (88 mcg total) by mouth daily 90 tablet 3 4 11/06/19 25 Active cyanocobalamin (Vitamin B-12) 1,000 mcg/mL injectionIndicat ions:Vitamin B12 deficiency (non anemic) Inject 1 mL (1,000 mcg total) under the skin every 14 (fourteen) days 6 mL 1 4 Active acetaminophen (TYLENOL) 500 mg tablet Take 1 tablet (500 mg total) by mouth every 6 (six) hours as needed for pain Active acetaminophen (TYLENOL) 500 mg tabletIndication s:Pain Take 1 tablet (500 mg total) by mouth every 6 (six) hours as needed for pain 30 tablet 5 Active polyethylene glycol (MIRALAX) 17 gram/dose bulk powderIndication s:constipation Take 17 g by mouth daily 116 g 5 Active metFORMIN XR (GLUCOPHAGE XR) 500 mg 24 hr tabletIndication s:Prediabetes Take 1 tablet (500 mg total) by mouth daily with breakfast 90 tablet 3 5 04/15/19 26 Active Active Problems Problem Noted Date Diagnosed Date Erosion of vaginal mesh, 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 A1c stable at 6.0%. Currently taking metformin XR 500mg daily. Could not tolerate Ozempic. Reviewed diet/exercise. Recently had bladder sling removed & is still under restrictions from surgeon. Assessment & Plan (11/05/2023 3:04 PM CDT): Chronic problem. A1c stable at 5.8%. Currently taking metformin XR 500mg daily. Could not tolerate Ozempic. Reviewed diet/exercise. No changes at this time. Assessment & Plan (07/08/2023 2:51 PM CDT): Diet and exercise Cut on ice cream and cookie Better snack choices discussed Continue Metformin Start Ozempic Samples provided Assessment & Plan (12/17/2022 3:51 PM HORSE RIDER): Diet and exercise are the cornerstone of treatment to prevent progression to full blown diabetes was explained Lowest metformin to 500 mg once day due to GI side effects of the 1000 mg Vitamin B12 deficiency (non anemic) 12/17/2022 Assessment & Plan (04/14/2024 1:13 PM HORSE RIDER): Chronic problem. Asymptomatic at this time on current b12 1000mcg every 2 weeks. Will update labs today. Verified that she uses mychart. Aware to check results/results letter in mychart. Will contact by phone if needed. Assessment & Plan (11/05/2023 3:04 PM CDT): Chronic problem. Asymptomatic at this time on current b12 1000mcg every 2 weeks. Will update labs today. Verified that she uses mychart. Aware to check results/results letter in mychart. Will contact by phone if needed. Assessment & Plan (12/17/2022 3:51 PM HORSE RIDER): Continue cyanocobalamin 1000 mcg every other week Update vitamin-B12 levels Family history of breast cancer 01/25/2022 Hypothyroidism 06/14/2020 Assessment & Plan (04/14/2024 1:11 PM HORSE RIDER): Chronic problem. Clinically & biochemically euthyroid on current levothyroxine 88mcg daily. Aware to take 1st thing in morning, 30-60 minutes before food/drink/other medications. Will update labs today. Verified that she uses mychart. Aware to check results/results letter in mychart. Will contact by phone if needed. Assessment & Plan (11/05/2023 3:03 PM CDT): Chronic problem; status unknown. Currently taking levothyroxine 88mcg daily. Clinically euthyroid. Aware to take 1st thing in morning, 30-60 minutes before food/drink/other medications. Will update labs today. Verified that she uses [facility]. Aware to check results/results letter in [facility]. Will contact by phone if needed. 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 12/17/2022 Encounters Date Type Department Care Team Description 06/09/2024 9:00 AM CDT Ancillary Procedure [facility] Cardiology [address] [place] [address] [place] [phone] Palpitations 06/09/2024 7:45 AM CDT Ancillary Procedure [facility]iology [address] [place] [address] [place] [phone] Other chest pain 06/02/2024 Telephone [facility]iology [address] [place] [address] [place] [phone] Clary Reeder NP 06/01/2024 Telephone [facility] Cardiology [address] [place] [phone] Clary Reeder NP 04/16/2024 Results Follow-Up [facility] [address] [place] [phone] Yaquelin Cross NP 04/14/2024 1:00 PM HORSE RIDER Office Visit [facility] [address] [place] [phone] Yaquelin Cross NP 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 (Primary Dx); Prediabetes; Vitamin B12 deficiency (non anemic) 04/14/2024 Telephone [facility] [address] [place] [phone] Yaquelin Cross NP Lab orders 04/14/2024 Telephone [facility] [address] [place] [phone] Yaquelin Cross NP from Last 3 Months Surgical History Surgery Date Site/Laterality Comments ABLATION SHOULDER SURGERY CHOLECYSTECTOMY BLADDER SUSPENSION Medical History Medical History Date Comments Thyroid disease PONV (postoperative nausea and vomiting) Family History Medical History Relation Name Comments Lung cancer Maternal Grandmother Uterine cancer Maternal Grandmother Breast cancer Mother Melanoma Mother Relation Name Status Comments Maternal Grandmother Mother Social History Tobacco Use Types Packs/Day Years Used Date Smoking Tobacco: Former AUDIT-C Answer Date Recorded Q1: How often do you have a drink containing alc ohol? 2-4 times a month 02/18/2024 Q2: How many drinks containi ng alcohol do you have on a typical day when you are drinking? 1 or 2 02/18/2024 Q3: How often do you have si x or more drinks on one occasion? Never 02/18/2024 PHQ-2 Answer Date Recorded PHQ-2 Total Score (If total score is 3 or more points, staff should administer the PHQ-9) 0 12/17/2022 Personal Safety Answer Date Recorded Have you ever been in or are you currently in a harmful physical or emotional relationship or is someone making you feel afraid or unsafe? Denies 02/18/2024 Comments No Sex and Gender Information Value Date Recorded Sex Assigned at Not on file Legal Sex Female 4:25 PM CDT Gender Identity Not on file Sexual Orientation Not on file Obstetrics History Last Filed Vital Signs Vital Sign Reading Time Taken Comments Blood Pressure 136/88 04/14/2024 12:58 PM HORSE RIDER Pulse 78 04/14/2024 12:58 PM HORSE RIDER Temperature 36.9 C (98.4 F) 02/19/2024 8:26 AM HORSE RIDER Respiratory Rate 16 04/14/2024 12:58 PM HORSE RIDER Oxygen Saturation 96% 02/19/2024 8:26 AM HORSE RIDER Inhaled Oxygen Concentration - - Weight 80.7 kg (178 lb) 04/14/2024 12:58 PM HORSE RIDER Height 165.1 cm (5' 5 ) 04/14/2024 12:58 PM HORSE RIDER Body Mass Index 29.62 04/14/2024 12:58 PM HORSE RIDER Plan of Treatment Health Maintenance Due Date Last Done Comments Colon Cancer Screening-Colonoscopy 1955 Hepatitis C Screening 1955 Osteoporosis Screening-Bone Density Scan 1955 DTaP/Tdap/Td Vaccine (1 - Tdap) 1968 Hepatitis B Screening 07/01/1975 Pneumococcal vaccine 65+ (1 of 1 - PCV) 07/01/2007 Zoster Vaccine (1 of 2) 07/01/2007 Well Visit 65+ 2022 Depression Screening 12/18/2023 12/17/2022 Influenza Vaccine (Season Ended) 2024 11/15/2020, 12/15/2019, 11/30/2018, Additional history exists Breast Cancer Screening-Mammogram 02/02/2025 02/03/2024, 01/31/2023, 01/25/2022, Additional history exists Fall Risk Assessment 02/18/2025 02/19/2024, 07/08/2023, 12/17/2022 Procedures Procedure Name Priority Date/Time Associated Diagnosis Comments NM MPI SPECT (REST AND/OR STRESS) MULTIPLE STUDIES Schedule Routine, Read Routine (OP Routine) 06/09/2024 10:20 AM CDT Other chest pain VITAMIN B12 Routine 04/14/2024 3:05 PM HORSE RIDER TSH Routine 04/14/2024 3:05 PM HORSE RIDER 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 T4, FREE Routine 04/14/2024 3:05 PM HORSE RIDER 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 POCT GLUCOSE Routine 04/14/2024 1:00 PM HORSE RIDER Prediabetes POCT HEMOGLOBIN A1C Routine 04/14/2024 1:00 PM HORSE RIDER Prediabetes SCREENING MAMMOGRAM BILATERAL W THAD Schedule Routine, Read Routine (OP Routine) 02/03/2024 8:56 AM HORSE RIDER Screening mammogram, encounter for from Last 3 Months or Most Recently Relevant to Health Maintenance Results * NM MPI Spect (Rest And Stress) Multiple Studies (06/09/2024 10:20 AM CDT) Anatomical Region Laterality Modality Body N/A Nuclear Medicine 06/09/2024 8:13 AM CDT Narrative 06/09/2024 12:41 PM CDT [facility] Cardiology [address] [facility] [facility] [address], [place] [address] [facility] [address], [place] [address] P:[phone] P:[phone] MPI Imaging Report Patient Name: RAVEN FIGUEROA L : 1955 Study Date: 06/09/2024 8:13:33 AM Gender: F Tech: [facility] Location: [facility] Provider: CRIS KING Height(Cm): 165.1 BSA: Weight(Kg): 80.7 BMI: 29.61 Order Provider: CRIS KING PHYSICIAN: Referring Physician: ALEXANDRA Avila. HCG Physician: none. Interpreting Physician: Darwin Hope M.D.,F.A.C.C. Stress Supervision: Darwin Hope M.D.,F.A.C.C. PROCEDURES: Exercise SPECT Report: Myocardial perfusion imaging with Tc99m Sestamibi SPECT at rest and stress post exercise using the Apollo protocol. INDICATIONS: Syncope, Diabetes, High Cholesterol, Palpitations, and R07.89 Other chest pain. FINDINGS: Procedure: One day rest/stress protocol was used. Tc99m Sestamibi injected IV at rest was 10.5 millicuries 32.4 millicuries of Tc99m Sestamibi injected IV at peak stress Patient had no symptoms during stress test. Baseline heart rate was 77 BPM Peak heart rate was 166 BPM Max projected heart rate was 154 Percent predicted max heart rate achieved was 108 % Exercise Time 8:45 min Baseline blood pressure was 124/86 mmHg Peak blood pressure 160/70 mmHg Termination: Fatigue. Resting ECG: Sinus rhythm , normal ECG. Post ECG: No diagnostic ST changes. Perfusion Findings: Normal perfusion imaging. No definite fixed or reversible defects. Small area of apical diaphragm attenuation. A TID of 0.94 was automatically calculated. LV Function: Global left ventricular function is normal. Left Ventricular Ejection Fraction is 67 %. CONCLUSIONS: Myocardial perfusion imaging is normal. Sinus rhythm , normal ECG. No diagnostic ST changes. Global left ventricular function is normal. Left Ventricular Ejection Fraction is 67 %. Normal functional capacity. Electronically Signed By: Darwin Hope MD, [facility] 06/09/2024 12:40:42 PM CDT Electronically Signed By: Darwin Hope MD, [facility] 06/09/2024 12:40:42 PM CDT Procedure Note Darwin Hope MD - 06/09/2024 [facility] Cardiology [address] [facility] [address] [address] [facility] [address], [place] [address] P:[phone] P:[phone] MPI Imaging Report Patient Name: RAVEN FIGUEROA L : 1955 Study Date: 06/09/2024 8:13:33 AM Gender: F Tech: DARCY SALEH Location: [facility] Provider: CRIS KING Height(Cm): 165.1 BSA: Weight(Kg): 80.7 BMI: 29.61 Order Provider: CRIS KING PHYSICIAN: Referring Physician: ALEXANDRA Avila. HCG Physician: none. Interpreting Physician: Darwin Hope M.D.,Talia Stress Supervision: Darwin Hope M.D.,[place]. PROCEDURES: Exercise SPECT Report: Myocardial perfusion imaging with Tc99m Sestamibi SPECT at rest and stresspost exercise using the Apollo protocol. INDICATIONS: Syncope, Diabetes, High Cholesterol, Palpitations, and R07.89 Other chestpain. FINDINGS: Procedure: One day rest/stress protocol was used. Tc99m Sestamibi injected IV at rest was 10.5 millicuries 32.4 millicuries of Tc99m Sestamibi injected IV at peak stress Patient had no symptoms during stress test. Baseline heart rate was 77 BPM Peak heart rate was 166 BPM Max projected heart rate was 154 Percent predicted max heart rate achieved was 108 % Exercise Time 8:45 min Baseline blood pressure was 124/86 mmHg Peak blood pressure 160/70 mmHg Termination: Fatigue. Resting ECG: Sinus rhythm , normal ECG. Post ECG: No diagnostic ST changes. Perfusion Findings: Normal perfusion imaging. No definite fixed or reversible defects. Smallarea of apical diaphragm attenuation. A TID of 0.94 was automatically calculated. LV Function: Global left ventricular function is normal. Left Ventricular EjectionFraction is 67 %. CONCLUSIONS: Myocardial perfusion imaging is normal. Sinus rhythm , normal ECG. No diagnostic ST changes. Global left ventricular function is normal. Left Ventricular EjectionFraction is 67 %. Normal functional capacity. Electronically Signed By: Darwin Hope MD, [facility] 06/09/2024 12:40:42 PM CDT Electronically Signed By: Darwin Hope MD, [facility] 06/09/2024 12:40:42 PM CDT Cris MORRIS IMG NM PROCEDURE S Final Result * TSH (04/14/2024 3:05 PM HORSE RIDER) TSH 2.36 0.40 - 4.50 mIU/L [place] [address] Blood 04/14/2024 3:05 PM HORSE RIDER 04/14/2024 3:06 PM HORSE RIDER us Yaquelin Cross WAFER PRODUCTION WORKER LAB BLOOD ORDERABLES Sarita l Result [facility] [place] [facility] [address] [place] [address] * T4, free (04/14/2024 3:05 PM HORSE RIDER) Pathologist [facility] Free T4 1.2 0.8 - 1.8 ng/dL [employer] [facility] Blood 04/14/2024 3:05 PM HORSE RIDER 04/14/2024 3:06 PM HORSE RIDER us Yaquelin Cross WAFER PRODUCTION WORKER LAB BLOOD ORDERABLES Sarita l Result Performing Organization Address City/[facility]/ZIP Co de Phone Number [facility] [address] [place] [address] * Vitamin B12 (04/14/2024 3:05 PM HORSE RIDER) Pathologist [facility] Vitamin B12 686 200 - 1,100 pg/mL [facility] 04/14/2024 3:05 PM HORSE RIDER 04/14/2024 3:06 PM HORSE RIDER us Yaquelin Cross WAFER PRODUCTION WORKER LAB BLOOD ORDERABLES Sarita l Result [facility] [employer] [facility] [address] [address] [phone] * (ABNORMAL) POCT hemoglobin A1c (04/14/2024 1:00 PM HORSE RIDER) Pathologist [facility] Hemoglobin A1C, POC 6.0 4.0 - 5.6 % Blood 04/14/2024 1:00 PM HORSE RIDER us Yaquelinangelica Cross WAFER PRODUCTION WORKER POINT OF CARE TEST ORDERA BLES Final Result * POCT glucose (04/14/2024 1:00 PM HORSE RIDER) Glucose Blood, POC 94 mg/dL Blood 04/14/2024 1:00 PM HORSE RIDER us Yaquelin Cross WAFER PRODUCTION WORKER POINT OF CARE TEST ORDERA BLES Final Result * Screening Mammogram Bilateral W Thad (02/03/2024 8:56 AM HORSE RIDER) Anatomical Region Laterality Modality Breast Bilateral Mammography Narrative 02/05/2024 10:42 AM HORSE RIDER Mammogram Technique: Bilateral Digital Breast Tomosynthesis, Bilateral C-view 2D Screening mammogram. Views obtained: bilateral craniocaudal and bilateral mediolateral oblique. Computer Aided Detection was performed. Mammogram Findings: The present examination has been compared to prior imaging studies performed at [facility] on 01/24/2021, 01/25/2022 and 01/31/2023. There are scattered areas of fibroglandular density. There is no suspicious abnormality in either breast. Impression: There is no mammographic evidence of malignancy. Annual screening mammography is recommended. OVERALL FINAL ASSESSMENT: BI-RADS CATEGORY 1: Negative. Procedure Note Mildred Barillas MD - 02/05/2024 Mammogram Technique: Bilateral Digital Breast Tomosynthesis, Bilateral C-view 2D Screening mammogram. Views obtained: bilateral craniocaudal and bilateral mediolateral oblique. Computer Aided Detection was performed. Mammogram Findings: The present examination has been compared to prior imaging studies performed at [facility] on 01/24/2021, 01/25/2022 and 01/31/2023. There are scattered areas of fibroglandular density. There is no suspicious abnormality in either breast. Impression: There is no mammographic evidence of malignancy. Annual screening mammography is recommended. OVERALL FINAL ASSESSMENT: BI-RADS CATEGORY 1: Negative. us Self Screening Mammogram IMG MAMMO PROCEDURES Fi nal Result from Last 3 Months or Most Recently Relevant to Health Maintenance Insurance [employer] [place] [employer] [place] Advance Directives For more information, please contact: [phone] * Full Code (Latest Code Status on File) Date Activated Date Inactivated Comments 02/18/2024 6:04 PM 02/19/2024 3:35 PM Care Teams Biology Intern Relationship Specialty Start Date End Date Menossi, Cris Ad[place], [place] [address] [place] [address] PCP - General Physician Spinning Lathe Operator Hydraulic 05/31/24 Lucy Dempsey MD [address] [id number] Referring Physician Gynecology 05/23/20
--- OUTSIDE RECORDS SUMMARY | 2024-06-23 12:35 | XMS_ITS | Referral Summary ---
Author Organization [facility] Address [address] [place] [address] Care Team Providers Care Yoga Teacher Name Role Phone Lucy Dempsey MD Unavailable [phone] Cris King Primary Care Pr ovider Encounters Date Type Department Care Team Description 06/09/2024 9:00 AM CDT Ancillary Procedure [facility] Cardiology 10 [facility] [address] [place] [phone] Palpitations 06/09/2024 7:45 AM CDT Ancillary Procedure [facility] Cardiology [address] [place] [address] [address] [place] [phone] Other chest pain 06/02/2024 Telephone [facility] Cardiology [address] [place] [address] [address] [place] [phone] Clary Reeder NP 06/01/2024 Telephone [facility] Cardiology [address] [place] [address] [address] [place] [phone] Clary Reeder NP 04/16/2024 Results Follow-Up [facility] Diabetes [facility] Endocrinology [address] [place] [phone] Yaquelin Cross NP 04/14/2024 Telephone [facility] Endocrinology [address] [place] [phone] Yaquelin Cross NP Lab orders 04/14/2024 Telephone [facility] [address] [place] [phone] Yaquelin Cross NP 04/14/2024 1:00 PM TECHNICAL PUBLICATIONS MANAGER Office Visit [facility] Endocrinology [address] [place] [phone] Yaquelin Cross, TASHA 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 A1c stable at 6.0%. Currently [...] provided Assessment & Plan (12/17/2022 3:51 PM TECHNICAL PUBLICATIONS MANAGER): Diet and exercise are the cornerstone of treatment to prevent progression to full blown diabetes was explained Lowest metformin to 500 mg once day due to GI side effects of the 1000 mg Vitamin B12 deficiency (non anemic) 12/17/2022 Assessment & Plan (04/14/2024 1:13 PM TECHNICAL PUBLICATIONS MANAGER): Chronic problem. Asymptomatic at this time on [...] needed. Assessment & Plan (12/17/2022 3:51 PM TECHNICAL PUBLICATIONS MANAGER): Continue cyanocobalamin 1000 mcg every other week Update vitamin-B12 levels Family history of breast cancer 01/25/2022 Hypothyroidism 06/14/2020 Assessment & Plan (04/14/2024 1:11 PM TECHNICAL PUBLICATIONS MANAGER): Chronic problem. 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 12/17/2022 Social History Tobacco Use Types Packs/Day Years [...] on file Sexual Orientation Not on file Last Filed Vital Signs Vital Sign Reading Time Taken Comments Blood Pressure 136/88 04/14/2024 12:58 PM TECHNICAL PUBLICATIONS MANAGER Pulse 78 04/14/2024 12:58 PM TECHNICAL PUBLICATIONS MANAGER Temperature 36.9 C (98.4 F) 02/19/2024 8:26 AM TECHNICAL PUBLICATIONS MANAGER Respiratory Rate 16 04/14/2024 12:58 PM TECHNICAL PUBLICATIONS MANAGER Oxygen Saturation 96% 02/19/2024 8:26 AM TECHNICAL PUBLICATIONS MANAGER Inhaled Oxygen Concentration - - Weight 80.7 kg (178 lb) 04/14/2024 12:58 PM TECHNICAL PUBLICATIONS MANAGER Height 165.1 cm (5' 5 ) 04/14/2024 12:58 PM TECHNICAL PUBLICATIONS MANAGER Body Mass Index 29.62 04/14/2024 12:58 PM TECHNICAL PUBLICATIONS MANAGER Plan of Treatment Not on file Procedures Procedure Name Priority Date/Time Associated Diagnosis Comments NM MPI SPECT (REST AND/OR STRESS) MULTIPLE STUDIES Schedule Routine, Read Routine (OP Routine) 06/09/2024 10:20 AM CDT Other chest pain VITAMIN B12 Routine 04/14/2024 3:05 PM TECHNICAL PUBLICATIONS MANAGER TSH Routine 04/14/2024 3:05 PM TECHNICAL PUBLICATIONS MANAGER 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 T4, FREE Routine 04/14/2024 3:05 PM TECHNICAL PUBLICATIONS MANAGER 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 POCT GLUCOSE Routine 04/14/2024 1:00 PM TECHNICAL PUBLICATIONS MANAGER Prediabetes POCT HEMOGLOBIN A1C Routine 04/14/2024 1:00 PM TECHNICAL PUBLICATIONS MANAGER Prediabetes SCREENING MAMMOGRAM BILATERAL W THAD Schedule Routine, Read Routine (OP Routine) 02/03/2024 8:56 AM TECHNICAL PUBLICATIONS MANAGER Screening mammogram, encounter for from Last 3 Months or Most Recently Relevant to Health Maintenance Results * NM MPI Spect (Rest And Stress) Multiple Studies (06/09/2024 10:20 AM CDT) Anatomical Region Laterality Modality Body N/A Nuclear Medicine 06/09/2024 8:13 AM CDT Narrative 06/09/2024 12:41 PM CDT [facility] Cardiology [address] [facility] [address], [place] [address] [address] [facility] [address] [address] P:[phone] P:[phone] MPI Imaging Report Patient Name: RAVEN FIGUEROA L : 1955 Study Date: 06/09/2024 8:13:33 AM Gender: F Tech: DARCY SALEH Location: [facility] Provider: CRIS KING Height(Cm): 165.1 BSA: Weight(Kg): 80.7 BMI: 29.61 Order Provider: CRIS KING PHYSICIAN: Referring Physician: PA. Austin HCG Physician: none. Interpreting Physician: Darwin Hope M.D.,Talia Stress Supervision: Darwin Hope M.D.,Talia PROCEDURES: Exercise SPECT Report: Myocardial perfusion imaging [...] capacity. Electronically Signed By: Darwin Hope MD, [facility] 06/09/2024 12:40:42 PM CDT Electronically Signed By: Darwin Hope MD, [facility] 06/09/2024 12:40:42 PM CDT Procedure Note Darwin Hope MD - 06/09/2024 [facility] Cardiology [address], [place] [address] [address] [facility] [address], [place] [address] P:[phone] P:[phone] MPI Imaging Report Patient Name: RAVEN FIGUEROA L : 1955 Study Date: 06/09/2024 8:13:33 AM Gender: F Tech: [facility] Location: [facility] Provider: CRIS KING Height(Cm): 165.1 [...] capacity. Electronically Signed By: Darwin Hope MD, [facility] 06/09/2024 12:40:42 PM CDT Electronically Signed By: Darwin Hope MD, [facility] 06/09/2024 12:40:42 PM CDT Cris MORRIS IMG NM PROCEDURE S Final Result * TSH (04/14/2024 3:05 PM TECHNICAL PUBLICATIONS MANAGER) Pathologist [facility] TSH 2.36 0.40 - 4.50 mIU/L [facility] Blood 04/14/2024 3:05 PM TECHNICAL PUBLICATIONS MANAGER 04/14/2024 3:06 PM TECHNICAL PUBLICATIONS MANAGER Yaquelin Cross ASSEMBLYMAN OR WOMAN LAB BLOOD ORDERABLES Sarita l Result Performing Organization Address [facility] Co de Phone Number QUEST [facility] [address] [place] [address] * T4, free (04/14/2024 3:05 PM TECHNICAL PUBLICATIONS MANAGER) Free T4 1.2 0.8 - 1.8 ng/dL [facility] Blood 04/14/2024 3:05 PM TECHNICAL PUBLICATIONS MANAGER 04/14/2024 3:06 PM TECHNICAL PUBLICATIONS MANAGER Yaquelin Cross ASSEMBLYMAN OR WOMAN LAB BLOOD ORDERABLES Sarita l Result Performing Organization Address [facility]/State/ZIP Co de Phone Number [facility] [address] [place] [address] * Vitamin B12 (04/14/2024 3:05 PM TECHNICAL PUBLICATIONS MANAGER) Vitamin B12 686 200 - 1,100 pg/mL [facility] 04/14/2024 3:05 PM TECHNICAL PUBLICATIONS MANAGER 04/14/2024 3:06 PM TECHNICAL PUBLICATIONS MANAGER us Yaquelin Cross ASSEMBLYMAN OR WOMAN LAB BLOOD ORDERABLES Sarita l Result [facility] [address] [place] [address] * (ABNORMAL) POCT hemoglobin A1c (04/14/2024 1:00 PM TECHNICAL PUBLICATIONS MANAGER) Hemoglobin A1C, POC 6.0 4.0 - 5.6 % Blood 04/14/2024 1:00 PM TECHNICAL PUBLICATIONS MANAGER us Yaquelin Cross NP POINT OF CARE TEST ORDERA BLES Final Result * POCT glucose (04/14/2024 1:00 PM TECHNICAL PUBLICATIONS MANAGER) Glucose Blood, POC 94 mg/dL Blood 04/14/2024 1:00 PM TECHNICAL PUBLICATIONS MANAGER us Yaquelin Cross NP POINT OF CARE TEST ORDERA BLES Final Result * Screening Mammogram Bilateral W Thad (02/03/2024 8:56 AM TECHNICAL PUBLICATIONS MANAGER) Anatomical Region Laterality Modality Breast Bilateral Mammography Narrative 02/05/2024 10:42 AM TECHNICAL PUBLICATIONS MANAGER Mammogram Technique: Bilateral Digital Breast Tomosynthesis, Bilateral C-view 2D Screening mammogram. Views obtained: bilateral craniocaudal and bilateral mediolateral oblique. Computer Aided Detection was performed. Mammogram Findings: The present examination has been compared to prior imaging studies performed at [facility] on 01/24/2021, 01/25/2022 and 01/31/2023. There are [...] compared to prior imaging studies performed at [facility] on 01/24/2021, 01/25/2022 and 01/31/2023. There are scattered areas of fibroglandular density. There is no suspicious abnormality in either breast. Impression: There is no mammographic evidence of malignancy. Annual screening mammography is recommended. OVERALL FINAL ASSESSMENT: BI-RADS CATEGORY 1: Negative. us Self Screening Mammogram IMG MAMMO PROCEDURES Fi nal Result from Last 3 Months or Most Recently Relevant to Health Maintenance Insurance [employer] [place] [employer] Advance Directives For more information, please contact: [phone] * Full Code (Latest Code Status on File) Date Activated Date Inactivated Comments 02/18/2024 6:04 PM 02/19/2024 3:35 PM Care Teams Yoga Teacher Relationship Specialty Start Date End Date Cris King PA [address] [place] [address] PCP - General Physician Hemodialysis Patient Care Specialist 05/31/24 Lucy Depmsey MD [address] [address] Referring Physician Gynecology 05/23/20
--- OUTSIDE RECORDS SUMMARY | 2024-06-23 12:36 | XMS_ITS | Patient Health Record ---
Author Organization [facility] Address [address] [facility] [address] [place] [address] Support Name Relationship Address Phone Carolina Raven Guarantor Unknown [phone] Reason For Referral No Information Medications Medication SIG (Take, Route, Frequency, Duration) Notes Start Date End Date Status Vitamin D 5,000 unit take 1 tablet by oral route daily for 30 days Oral 1 for 30 *Pick strength-form from [employer] for eRX* Active Amy Hives 24HR 180 MG take 1 tablet (180 mg) by oral route once daily Oral 1 Active Linzess 145 MCG take 1 capsule (145 mcg) by oral route once daily on an empty stomach at least 30 minutes before 1st meal of the day swallowing whole. Do no Oral 1 Active Omeprazole Magnesium 20 MG take 1 capsule (20 mg) by oral route once daily before a meal for 30 days Oral 1 for 30 Active Super B Complex 27-300 mg take 1 tablet by oral route daily for 30 days Oral 1 for 30 *Reorder from [employer] for eRx and Interaction Alerts* Active Problems Problem Type SNOMED Code ICD Code Onset Dates Problem Status W/U Status Risk Notes Problem Hypothyroidism (91798197) Hypothyroidism, unspecified (E03.9) 9 Active confirmed Problem Menopause (297980994) Menopausal and female climacteric states (N95.1) 8 Active confirmed Plan Of Treatment No Information Insurance Providers Payer Name Payer Address Payer Phone Subscriber Number Group Number Insured Name Patient Relationship to Insured Coverage Start Date Coverage End Date [place] [address] [place] [address] [id number] Raven Figueroa Self - patient is the insured 3 DO NOT USE [id number] Raven Figueroa Self - patient is the insured 1 Medical (General) History Surgical History Surgery Date(Month/Year) endometrial ablation, Date of Procedure: 2005; 2010-10-23 Salpingectomy: Due to Tubal in , Date of Procedure: around 1989; 2010-10-23 Shoulder surgery: Right , Date of Proced ure: 08/04/2013; 2013-10-20
--- OUTSIDE RECORDS SUMMARY | 2024-06-23 12:36 | XMS_ITS | Data Portability ---
Author Organization [facility] Address [address] [place] [address] Assessment Encounter Date Assessment Date Assessment LastModified by Organization Details LastModified Time 05/28/2023 05/28/2023 Mammogram is UTD 2022, annually at Dr. Roselyn contreras Colonoscopy UTD 2019 she thinks. 10 year next one eye and dental all UTD Not available 05/28/2023 09:23:35 05/27/2024 05/27/2024 Mammogram is UTD 2023, annually at Dr. Roselyn contreras Colonoscopy UTD 2019 she thinks. 10 year next one eye and dental all UTD Not available 05/27/2024 14:55:23 Plan of Treatment Reminders Order Date Submit Date Provider Last Modified By Organization Details Last Modified Time Details Appointments None recorde d. Lab CBC w/ auto diff 2024 025 [email or web address] [facility], [address], [place], [address], 5 13:53:23 hepatic functio n panel, serum 2024 025 [email or web address] [facility], [address], [place], [address], 5 13:53:24 BMP, serum or plasma 2024 025 [email or web address] [facility], [place], [address], 5 13:53:24 lipid panel, serum 2024 025 [email or web address] [facility], [address], [place], [address], 5 13:53:24 vitamin D, 25-hydr oxy, total, serum 2024 025 [email or web address] [facility], [address], [place], [address], 5 13:53:24 HbA1c (hemogl obin A1c), blood 2023 024 [email or web address] [facility], [address], [place], [address], 4 15:31:30 CBC w/ auto diff 2023 024 [email or web address] [facility], [address], [place], [address], 4 15:31:53 hepatic functio n panel, serum 2023 024 [email or web address] [facility], [address], [place], [address], 4 15:31:42 BMP, serum or plasma 2023 024 [email or web address] [facility], [address], [place], [address], 4 15:31:48 vitamin B12 + folate, serum or blood 2023 024 [facility], [address], [place], [address], 4 15:31:59 TSH + free T4, serum 2023 024 [employer] [facility], [address], [place], [address], 4 07:57:30 T3, free, serum or plasma 2023 024 [email or web address] [facility], [address], [place], [address], 4 15:31:37 Referral None recorde d. Procedures treadmi ll nuclear stress test (PROC) 2024 025 [place] Nikita García, [address], [place], [address], 5 12:07:49 Surgeries None recorde d. Imaging event monitor 2024 [email or web address], [address], [place], [address], 5 14:14:18 US, echocar diogram , transth oracic, complet e, w/ color flow 2024 025 [facility]), [address], [place], [address], 5 12:10:20 CT, chest, w/o contras t 2023 024 [email or web address] [facility], [address], [place], [address], 4 12:40:40 Medication Orders None recorde d. Patient TargetsNo targets recorded. Patient Instructions Encounter Date Encounter Id Patient Instructions Last Modified By Organization Details Last Modified Time 05/27/2024 [id number] A healthy lifestyle: care instructions Not available 05/31/2024 13:53:23 Reason for Referral None Reported. Results Created Date Observation Date Name Description Value Unit Range Abnormal Flag Note LastModifiedBy Organization Detail LastModifiedTime 04/15/19 25 04/14/2024 Hemog lobin A1c/H emogl obin. total in Blood hemoglobin A1C, POC 6 % low: 4%high : 5.6% Hemog lobin A1C, POC 6.0 4.0 - 5.6 % Not Available Not Available 05/27/2024 06:22:52 04/15/19 25 04/14/2024 Hemog lobin A1c/H emogl obin. total in Blood interpretati on and review of laboratory results Abnorm al Not Available Not Available 06:22:52 06/03/19 24 02/18/2023 XR, chest No observ ation record ed. [address] [facility] [address], [place], [address], 06/03/2023 12:38:25 06/12/19 24 06/11/2023 CT, chest , w/o contr ast No observ ation record ed. [address] [facility] [address], [place], [address], 06/16/2023 17:40:15 08/18/19 24 08/07/2023 upper endos copy proce dure (EGD) (PROC ) No observ ation record ed. [address], [place], [address], 08/18/2023 12:26:13 02/05/20 24 02/03/2024 MAMMO , scree zara, digit al, bilat eral No observ ation record ed. [email or web address] [facility] [address] [place], [address], 02/05/2024 12:02:42 03/05/19 25 03/05/2024 XR, ankle , 2 view No observ ation record ed. [email or web address] [place], [address], 03/08/2024 09:25:44 04/16/19 25 03/31/2024 XR, ankle , 3 or more view No observ ation record ed. BARCODE Not Available 2024 15:37:10 06/10/19 25 06/09/2024 tread mill nucle ar stres s test (PROC ) No observ ation record ed. JEREL [facility] [place] [address], [place], [address], 06/11/2024 15:23:38 Result Notes None recorded. Problems Name Problem SNOMED Code Status Onset Date Resolution Date Notes Provider Name and Address Organization Details Recorded Time Herpes zoster 6463079 Active 2023 Salena Navarro null, [place] - [facility] 4 10:09:39 Hypothyroidism 83367734 Active Sal[place] [facility] 4 10:09:49 Cobalamin deficiency 598200824 Active Sal[place] [facility] 4 10:10:14 Vitamin D deficiency 55238995 Active ALEXANDRA Avila Attn: Ailin matt,[address] [facility], [place], [address], [place] - [facility] 5 15:01:38 Hyperlipidemia 86974958 Active 2023 Sal[place] [facility] 4 10:10:50 Anxiety 43168257 Active 2023 Sal[place] [facility] 4 10:11:03 Gastroesophage al reflux disease 777789950 Active Sal[place] [facility] 4 10:11:16 Chronic constipation 532603126 Active Sal[place] [facility] 4 10:11:28 Irritable bowel syndrome 31266953 Active Sal[place] [facility] 4 10:11:42 Impaired glucose tolerance 7721919 Active Sal[place] [facility] 4 10:11:55 Overweight in adulthood with body mass index of 25 or more but less than 30 778005621 Active 2024 Baldomero Lamas [place], [place] - [facility] 5 14:47:43 Long-term drug therapy Active 2024 ALEXANDRA Avila Attn: Accountcheikh g,[address] [facility], [place], [address], [place] - [facility] 5 15:01:12 Irritable bowel syndrome characterized by constipation 592475736 Active 2024 ALEXANDRA Avila Attn: Accountin g,[address] [facility], [place], [address], [place] [facility] 5 15:01:14 Mixed anxiety and depressive disorder 174223752 Active 2024 ALEXANDRA Avila Attn: Accountin g,[address] [place], [address], [place] [facility] 5 15:01:17 Prediabetes 622124928 Active 2024 ALEXANDRA Avila Attn: Accountin g,[address] [facility], [place], [address], [place] [facility] 5 15:01:19 Overweight 844787463 Active 2024 ALEXANDRA Avila Attn: Titoin g,[address] [place], [address], [place] [facility] 5 15:01:25 Gastroesophage al reflux disease without esophagitis 107066413 Active 2024 ALEXANDRA Avila Attn: Accountin g,[address] [place], [address], [place] [facility] 5 15:01:28 Notes:covid pos 11/22/2019 Problem Notes None recorded. Procedures Surgical History Date Name Laterality Status Provider Name and Address Organization Details Recorded Time 11/29/19 22 colonoscopy completed Salena TUBBS - [facility] 04/04/2023 10:18:15 04/15/19 19 [facility] 10:16:37 05/21/19 18 [facility] 10:16:53 11/11/19 17 dilation and curettage completed Salena [facility] 04/04/2023 10:17:10 08/05/19 14 repair of shoulder completed [facility] 04/04/2023 10:17:32 02/10/18 87 removal of ectopic fetus completed Salena [facility] 04/04/2023 10:15:19 02/10/18 83 removal of ectopic fetus completed Salena [facility] 04/04/2023 10:15:[address] [facility] 04/04/2023 10:16:04 Imaging Results Imaging Date Name Status LastModified by Organiz ation Details LastModified Time 02/18/2023 XR, chest completed [address], [place], [address], 06/03/2023 12:38:25 06/11/2023 CT, chest, w/o contrast completed [address] [facility] [address], [place], [address], 06/16/2023 17:40:15 08/07/2023 upper endoscopy procedure (EGD) (PROC) completed [address], [place], [address], 08/18/2023 12:26:13 02/03/2024 MAMMO, screening, digital, bilateral completed [email or web address] [facility] [address] [place], [address], 02/05/2024 12:02:42 03/05/2024 XR, ankle, 2 view completed [address] [place], [address], 03/08/2024 09:25:44 03/31/2024 XR, ankle, 3 or more view completed [facility] Information not available 04/15/2024 15:37:10 06/09/2024 treadmill nuclear stress test (PROC) completed JEREL García [address] [facility] [address], [place], [address], 06/11/2024 15:23:38 Procedure Notes None recorded. Medical Equipment None Reported. Allergies Allergen ID Allergen Name Allergen Category Reaction Reaction Severity Criticality Documentation Date Start Date Code Code System Note Provider Name and Address Organization Details Recorded Time 243624 Dilaudid medicatio n vomiting Not available Not available 04/04/2023 59245 3 RxNorm Salena Navarro null, [place] - [facility] 4 10:07:33 178956 oxycodone medicatio n Not available Not available Not available 04/04/2023 7804 RxNorm Salena Navarro null, [place] - [facility] 4 10:07:40 491270 acetamino phen / oxycodone medicatio n vomiting Not available Not available 04/04/2023 76832 3 RxNorm Sal[place] Nav[place] [facility] 4 10:07:48 262355 acetamino phen / hydrocodo ne medicatio n Not available Not available Not available 04/04/2023 56568 2 RxNorm Sal[place] Navarro [place] [facility] 4 10:07:59 Medications Name Sig Start Date Stop Date Status Note LastModified by Organization Details LastModified Time azithromy nader 250 mg tablet TK 2 TS PO ON DAY 1, THEN TK 1 T PO D FOR 4 DAYS 04/04 completed Not Available Not Available Not Available fluconazo le 150 mg tablet TAKE 1 TABLET BY MOUTH EVERY DAY NEEDED 05/27 completed Not Available Not Available Not Available benzonata te 200 mg capsule TAKE 1 CAPSULE BY MOUTH THREE TIMES DAILY 04/04 completed Not Available Not Available Not Available ciproflox acin 500 mg tablet TAKE 1 TABLET BY MOUTH EVERY 12 HOURS 04/04 completed Not Available Not Available Not Available acetamino phen 500 mg tablet TAKE 1 TABLET BY MOUTH EVERY 6 HOURS NEEDED FOR PAIN 05/27 completed Not Available Not Available Not Available levothyro xine 88 mcg tablet 05/27 completed Not Available Not Available Not Available pantopraz ole 40 mg tablet,de layed release TAKE 1 TABLET BY MOUTH TWICE DAILY 2024 active Not Available Not Available Not Avai lable cyanocoba lizzie (vit B-12) 1,000 mcg/mL injection solution INJECT 1 ML UNDER THE SKIN EVERY 14 DAYS active Not Available Not Available No t Available codeine 10 mg-guaife nesin 100 mg/5 mL oral liquid TAKE 10 ML BY MOUTH EVERY 6 HOURS NEEDED 04/04 completed Not Available Not Available Not Available lorazepam 1 mg tablet Take 1 tablet by oral route for 90 days. active MEERA Not Available Not Available No t Available methylpre dnisolone 4 mg tablets in a dose pack FOLLOW PACKAGE DIRECTIO NS 04/04 completed Not Available Not Available Not Available metformin ER 500 mg tablet,ex tended release 24 hr active Not Available Not Available Not Available doxycycli ne hyclate 100 mg tablet TAKE 1 TABLET BY MOUTH TWICE DAILY WITH MEALS 04/04 completed Not Available Not Available Not Available amoxicill in 875 mg-potass ium clavulana te 125 mg tablet TAKE 1 TABLET BY MOUTH TWICE DAILY 05/27 completed Not Available Not Available Not Available amoxicill in 500 mg-potass ium clavulana te 125 mg tablet TAKE 1 TABLET BY MOUTH THREE TIMES DAILY FOR 1 WEEK 04/04 completed Not Available Not Available Not Available neomycin- polymyxin -hydrocor t 3.5 mg-10,000 unit/mL-1 % ear drops,renee p SHAKE LIQUID AND INSTILL 2 DROPS IN BOTH EARS FOUR TIMES DAILY 05/27 completed Not Available Not Available Not Available rosuvasta tin 5 mg tablet Take 1 tablet by oral route for 90 days. active Not Available Not Available No t Available bupropion HCl XL 300 mg 24 hr tablet, extended release Take 1 tablet every day by oral route for 90 days. active Not Available Not Available No t Available levothyro xine 88 mcg capsule TAKE 1 CAPSULE BY MOUTH DAILY IN THE MORNING ON AN EMPTY STOMACH active Not Available Not Available No t Available Linzess 145 mcg capsule TAKE 1 CAPSULE BY MOUTH DAILY 2024 active Not Available Not Available Not Avai lable Vitals Date Recorded Body height Body mass index (BMI) Body weight Respiratory rate Oxygen saturation Oxygen saturation in Arterial blood by Pulse oximetry Heart rate Systolic blood pressure Diastolic blood pressure Provider Name and Address Organization Details Last Updated DateTime 4 165.1 cm 31.1 kg/m2 21915.7 7 g 20 /min 98 % 98 % 77 /min 132 mm[Hg] 82 mm[Hg] Baldomero Lamas MA [facility] 4 09:01:25 Date Recorded Body height Body mass index (BMI) Body weight Respiratory rate Oxygen saturation Oxygen saturation in Arterial blood by Pulse oximetry Heart rate Systolic blood pressure Diastolic blood pressure Provider Name and Address Organization Details Last Updated DateTime 5 165.1 cm 29.5 kg/m2 67898.8 5 g 20 /min 97 % 97 % 80 /min 118 mm[Hg] 82 mm[Hg] Baldomero Lamas MA [facility] 5 14:50:44 Date Recorded Systolic blood pressure Diastolic blood pressure Provider Name and Address Organization Details Last Updated DateTime 05/27/2024 110 mm[Hg] 80 mm[Hg] ALEXANDRA Avila Attn: Accounting,[address] [place], [address], [facility] 05/27/2024 15:20:41 Social History Question Answer Notes LastModified by Organizat ion Details LastModified Time Tobacco Smoking Status Former Smoker Salenajason stout, [facility] 04/04/2023 10:14:00 Are You Blind Or Do You Have Difficulty Seeing? No [email or web address] Information n ot available 04/04/2023 What Is Your Level Of Caffeine Consumption? Moderate [email or web address] Information not available 04/04/2023 In The 14 Days Before Symptom Onset, Have You Had Close Contact With A Laboratory-confirm ed COVID-19 While That Case Was Ill? No [email or web address] Information n ot available 04/04/2023 In The 14 Days Before Symptom Onset, Have You Had Close Contact With A Person Who Is Under Investigation For COVID-19 While That Person Was Ill? No [email or web address] Information not available 04/04/2023 Have You Been To An Area Known To Be High Risk For COVID-19? No [email or web address] Information not available 04/04/2023 Are You Deaf Or Do You Have Serious Difficulty Hearing? No [email or web address] Information not available 04/04/2023 What Type Of Diet Are You Following? REGULAR [email or web address] Information n ot available 04/04/2023 Are There Any Guns Present In Your Home? Yes [email or web address] Information not available 04/04/2023 What Was The Date Of Your Most Recent Tobacco Screening? 05/27/2024 Information not available 05/27/2024 What Is Your Current Pack Years? 10-19packyear s Information not available 05/28/2023 What Is Your Relationship Status? [email or web address] Information not available 04/04/2023 Do You Use Your Seat Belt Or Car Seat Routinely? Yes [email or web address] Information not available 04/04/2023 Do You Have Smoke And Carbon Monoxide Detectors In Your Home? Yes [email or web address] Information not available 04/04/2023 How Much Tobacco Do You Smoke? No [email or web address] Information not available 04/04/2023 Do You Use Sunscreen Routinely? Yes [email or web address] Information not available 04/04/2023 Has Tobacco Cessation Counseling Been Provided? Yes Information not available 05/28/2023 On What Date Was Tobacco Cessation Counseling Provided? 05/27/2024 Information not available 05/27/2024 Sex: Female Functional Status Question Answer Note LastModified by Organizat ion Details LastModified Time Do you use any illicit or recreational drugs? No [email or web address] Information not available 04/04/2023 Do you or have you ever used any other forms of tobacco or nicotine? No [email or web address] Information not available 04/04/2023 What is your level of alcohol consumption? Occasional [email or web address] Information not available 04/04/2023 Are you currently employed? Yes [email or web address] Information not available 04/04/2023 Are you able to care for yourself? 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 Occasional [email or web address] Information not available 04/04/2023 Mental Status None recorded. Family History Relationship Description Onset Age of this Age Resolved Age Notes LastModified by Organization Details LastModified Time Mother Malignant tumor of breast [email or web address] Not available 04/04 10:12:52 Mother Urolithiasis [email or web address] Not kellen ilable 04/04/2023 10:13:02 Mother Malignant neoplasm of skin [email or web address] Not available 04/04 10:13:08 Mother Diabetes mellitus [email or web address] Not available 04/04 10:13:21 Sister Diabetes mellitus [email or web address] Not available 04/04 10:13:21 Father Asthma [email or web address] Not available 05/28/2023 09:56:28 Medical History Condition Response Coronary Artery Disease N Other N High Blood Pressure N Atrial Fibrillation N Kidney or Bladder Problems N Thyroid Problems Y GI Problems N Depression N COPD N Blood Clots N Skin Problems N Anemia N Heart Attack (PA) N Anxiety Disorder N Diabetes Y Muscle, Joint, or Bone Problems N Seizures/Epilepsy N Acid Reflux (GERD) Y Cancer N Stroke N Asthma N Allergies N High Cholesterol Y Hepatitis N Liver Disease N Headaches N Heart Failure N Osteoporosis N Gynecological History Statement/Question Response Menses Monthly N Obstetrics History GPAL:G 4 P 0 0 0 1 Type Value Living 1 Total 4 Immunizations Vaccine Type Date Status Note Provider Nam e and Address Organization Details Recorded Time SARS-COV-2 (COVID-19) vaccine, UNSPECIFIED 04/18/2020 elizabeth stout [place] - [facility] 04/04/2023 10:09:10 SARS-COV-2 (COVID-19) vaccine, UNSPECIFIED 03/21/2020 elizabeth stout, [place] - [facility] 04/04/2023 10:09:16 SARS-COV-2 (COVID-19) vaccine, UNSPECIFIED 03/13/2020 elizabeth stout, [place] - [facility] 04/04/2023 10:09:20 Past Encounters Encounter ID Performer Location Encounter Start Date Encounter Closed Date Diagnosis/Indication Diagnosis SNOMED-CT Code Diagnosis ICD10 Code Diagnosis Note [id number] Darwin Roman MD [facility] [place] [address] [place] [address] 05/28/2023 08:49:49 05/28/2023 09:47:38 Adult health examination 993595494 Z00.01 annual wellness completed Gastroesop hageal reflux disease without esophagitis 027942016 K21.9 stable on pantoprazo le 40mg daily. Mixed anxi ety and depressive disorder 512138601 F41.8 stable on wellbutrin XL 300mg daily. Hypothyroidism 72312456 E03.9 stable on levothyrox ine 88mcg daily. due for updated TFT panel. Irritable bowel syndrome characterized by constipation 954144471 K58.1 stable on linzess 145mcg daily. Long-term drug therapy 770622924 Z79.899 due for cbc, cmp, b12 and folate labs. Prediabetes 044234165 R7 3.03 due for updated A1c. on metformin ER 500mg daily. Persistent cough 2192576 02 R05.3 several weeks now of persistent cough that is not resolving with medication attempts of OTC allergy and decongesta nt medication s. Send for CT chest w/o contrast to rule out other causes of cough. [id number] Darwin Roman MD [facility] [place] [address] [place] [address] 05/27/2024 14:32:28 05/27/2024 15:22:47 Overweight in adulthood with body mass index of 25 or more but less than 30 865080835 E66.3 Z68.29 BMI 29.5 Overweight 855056614 E66 .3 discussed healthy diet, exercise, controllin g carbohydra abimael and added sugars in the diet Adult [facility] [place] [facility] examination 751046143 Z00.01 annual wellness completed Gastroesop hageal reflux disease without esophagitis 527647743 K21.9 stable on pantoprazo le 40mg daily. Prediabetes 180626383 R7 3.03 6% a1c in april, on metformin ER 500mg daily. follows with endocrine. Mixed anxi ety and depressive disorder 609967545 F41.8 stable on wellbutrin XL 300mg daily. Hypothyroidism 01697319 E03.9 stable on levothyrox ine 88mcg daily. follows with endocrine and is UTD on thyroid labs with them. Irritable bowel syndrome characterized by constipation 681893557 K58.1 stable on linzess 145mcg daily. Long-term drug therapy 356500756 Z79.899 Routine labs ordered BMP, CBC and liver function panel Vitamin D deficiency 347 57810 E55.9 Screening vitamin-D lab is due Cholesterol screening 27 6775386 Z13.220 Fasting lipids are due Atypical chest pain 1025 11722 R07.89 Patient has had scattered episodes of midsternal chest pain. Some have been with activity some at rest. We will refer for a treadmill nuclear stress test. Also send for a complete echo with Doppler because she did have an episode of syncope a few months ago. She went to the emergency room for that and was told that they did not find anything wrong Palpitations 30905629 R0 0.2 Patient also reports some palpitatio ns. We will refer her for a 30 day event monitor Health Concerns Section Related Observation LastModified by Organization Detai ls LastModified Time None Recorded Concern Status LastModified by Organization Details LastModified Time None Recorded Advance Directives Directive None Recorded Payers Encounter Date Sequence Insurance Name Policy Number Policy Ramires Covered Member ID Ramires Member ID Guarantor Name 05/28/2023 1 [place] [id number] Raven Figueroa [id number] Raven Figueroa 05/27/2024 1 [place] [id number] Raven Figueroa [id number] Raven Figueroa Notes Date Note Type Note Provider Name and Address Organization Details Recorded Time 05/28/2023 text/html Anxiety/Depressi onR eported bypatient.Notes:sta ble on lorazepam 1mg qhs and also bupropion XL 300mg daily.ConstipationR eported bypatient.Notes:IBS -C chronic: on linzess 145mcg daily. stable .CoughReported bypatient.Quality:h suki Severity:moderate Duration:intermitte nt; symptoms lasting over 2 weeks Timing:still present. Context:non-smoker Associated Symptoms:no fever; no chills; no chest pain; no heartburn; no nausea; no vomiting; no edema; no agitation; no wheezing;post nasal drip(sometimes.)Hyp erlipidemiaReported bypatient.Notes:pat ient is controlling with diet and exercise.Reflux/ALIYA DReported bypatient.Notes:sta ble on pantoprazole 40mg daily. she has no complaints as long as she takes medication. UTD on EGD scope.ThyroidReport ed bypatient.Notes:emily holland is taking levothyroxine 88mcg daily. due for labs. Prediabetes: now on metformin one daily. ALEXANDRA Avila Attn: Accounting,[address] [facility], [place], [address], [facility] 06/02/2023 12:21:57 05/27/2024 text/html Angina/Chest PainReported bypatient.Location: chest; midsternal Quality:pressure;he aviness Severity:moderate Duration:lasts minutes Onset/Timing:starte d 8weeks ago Context:exertional; at rest Associated Symptoms:no dyspnea;dizziness;d iaphoresis;lighthea dedness; SyncopeAnxiety/Depr essionReported bypatient.Notes:sta ble on lorazepam 1mg qhs and also bupropion XL 300mg daily.ConstipationR eported bypatient.Notes:IBS -C chronic: on linzess 145mcg daily. stable .CoughReported bypatient.Quality:h suki Severity:moderate Duration:intermitte nt; symptoms lasting over 2 weeks Timing:still present. Context:non-smoker Associated Symptoms:no fever; no chills; no chest pain; no heartburn; no nausea; no vomiting; no edema; no agitation; no wheezing;post nasal drip(sometimes.)Hyp erlipidemiaReported bypatient.Notes:emily holland is controlling with diet and exercise.Reflux/ALIYA DReported bypatient.Notes:sta ble on pantoprazole 40mg daily. she has no complaints as long as she takes medication. UTD on EGD scope.ThyroidReport ed bypatient.Notes:emily holland is taking levothyroxine 88mcg daily. due for labs. Prediabetes: now on metformin one daily. ALEXANDRA Avila Attn: Accounting,[address] [facility], [place], [address], [facility] [place] 05/31/2024 13:53:51 OBGyn Episode No OBEpisode recorded.
== END 2024-06-23 12:33 | disposition home or self-care (01) ==
PROVIDERS: PCP Physician Assistant; Visit Provider Physician Assistant
DX: R07.89 Other chest pain (principal)
CPT/HCPCS: 93306

== ENCOUNTER 2024-11-30 08:45 | Outpatient (CLI) | payer BC, SELFPAY ==
--- NOTE | ~2024-11-30 | DEXA_ITS ---
Bone Density Report Name: FEI HERRMANN Age: 69 Sex: Female Ethnicity: White Date of : 1955 Indication: postmenopausal; screening for osteoporosis; Referring Provider: JOSE JUAN, COLBY Study: Bone densitometry was performed. Exam Date: November 30, 2024 Accession number: [id number] Bone Density: Region BMD T-score Z-score Classification AP Spine(L1, L2, L3) 1.109 0.8 2.7 Normal Femoral Neck (Left) 0.867 0.2 1.8 Normal Total Hip (Left) 1.011 0.6 1.9 Normal Femoral Neck (Right) 0.833 -0.1 1.5 Normal Total Hip (Right) 0.966 0.2 1.6 Normal Total Hip Mean 0.988 0.4 1.8 Normal World Health Organization criteria for BMD impression classify patients as: Normal (T-score at or above -1.0), Osteopenia (T-score between -1.0 and -2.5), or Osteoporosis (T-score at or below -2.5). 10-year Fracture Risk: FRAX not reported because: All T-scores for Spine Total, Hip Total, Femoral Neck at or above -1.0 Previous Exams: -- Region Exam Age BMD T-score BMD Change BMD Change Date g/cm2 vs Baseline vs Previous -- AP Spine (L1-L3) 11/30/2024 69 1.109 0.8 -4.3%* 1.7% 10/06/2020 65 1.091 0.7 -5.9%* -9.8%* 09/09/2012 57 1.209 1.7 4.3%* 0.0% 08/14/2009 54 1.209 1.7 4.3%* 4.3%* 07/31/2007 52 1.159 1.3 Total Hip(Left) 11/30/2024 69 1.011 0.6 -11.1%* -6.9%* 10/06/2020 65 1.086 1.2 -4.5%* -8.7%* 09/09/2012 57 1.190 2.0 4.6%* -0.6% 08/14/2009 54 1.197 2.1 5.2%* 5.2%* 07/31/2007 52 1.137 1.6 Total Hip(Right) 11/30/2024 69 0.966 0.2 -8.4%* -5.6%* 10/06/2020 65 1.023 0.7 -2.9%* -5.0%* 09/09/2012 57 1.078 1.1 2.2% 1.3% 08/14/2009 54 1.064 1.0 0.9% 0.9% 07/31/2007 52 1.054 0.9 -- *Denotes significance at 95% confidence level, LSC for AP Spine = 0.022 g/cm2, LSC for Total Hip = 0.027 g/cm2 Rate of change results reflect vertebral levels common to all scans Clinical Information Provided by Patient: Has used the following medications: Vitamin D Patient maximum height was 65 Menopause Age: 49 No regular weight bearing exercise Drinks caffeinated beverages Onset of menses at age 13 Number of children 1 Impression: The patient has normal bone mass. The BMD for the Total Hip(Left) decreased, changing by -6.9% since the last DXA exam. The BMD for the Total Hip(Right) decreased, changing by -5.6% since the last DXA exam. Discussion: BONE DENSITY IS ABOVE THE MINIMUM DESIRABLE LEVEL AT ALL SKELETAL SITES TESTED. This patient?s bone mineral density is above the minimum desirable level (T-score -1.0 or better) at all sites measured. The patient should follow a healthful lifestyle (good nutrition with adequate calcium and vitamin D, and appropriate weight-bearing exercise). Follow-Up: Consider repeating this study in 3 to 4 years to reassess this patient's status, or sooner if there is some new clinical indication. Reported by: BETINA on 11/30/2024 9:33:00 AM. Reviewed, dictated and finalized at location A.
== END 2024-11-30 08:46 | disposition home or self-care (01) ==
LOC: MICIMG 08:46
PROVIDERS: PCP Physician Assistant; Visit Provider Nurse Practitioner
DX: Z13.820 Encounter for screening for osteoporosis (principal); Z78.0 Asymptomatic menopausal state
CPT/HCPCS: 77080